=== PATIENT | female | born 1985 | race African-American/Black ===

== ENCOUNTER 2022-11-21 10:36 | Emergency (ER) | payer OTHER, SELFPAY ==
--- OUTSIDE RECORDS SUMMARY | 2022-11-21 10:38 | XMS REPORT | Continuity of Care Document ---
:1985 Author Organization [facility] t Address [address] [place] [address] [address] [place] [address] Care Team Providers Name Role Phone Anita Hoyos Primary Care Physician Daisy Pruitt CNM Attending Clinician DAISY PRUITT Attending Clinician Unavailable Doctor Unassigned, [place] Attending Clinician Unavailable Provider, Kalyn Temp Attending Clinician Unavailable ANITA HERRERA Attending Clinician Unavailable ANITA HERRERA Attending Clinician Unavailable REBEKA MIRANDA Attending Clinician Unavailable ALYSON DEMARCO Attending Clinician Unavailable Nilam Alyson OMTLEY Attending Clinician [phone] Rebeka Rivera Attending Clinician ABILIO Attending Clinician Unavailable ANITA GARCIA Attending Clinician Unavailable TRISH BUSH Attending Clinician Unavailable Lab, Adc Fam Pob I Attending Clinician Unavailable Trish Gonzalez Attending Clinician Bernardo Bernardo DO Attending Clinician Anita Hoyos Attending Clinician Visit, Kalyn Nurse Attending Clinician Unavailable ABILIO Admitting Clinician Unavailable Payers Payer Name Policy Type Policy Number Effective Date Expiration Date S deyvi Problems Condition Condition Condition Status Onset Resolution Last Treating Co mments Source Name Details Category Date Date Treatment Clinician Date Vaginal Vaginal Disease Active Univers irritation irritation 9-14 it y of 00:00: [place] 00 Medical Branch Yeast Yeast Disease Active Univers infection infection 9-14 ity of 00:00: Medical Branch ASCUS of ASCUS of Disease Active Overview: Un rosario cervix cervix - Formattin ity of with with 00:00: g of this [place] negative negative 00 note Medica l high risk high risk might be Br anch HPV HPV different from the original. ASCUS/HPV -, repeat pap smear in 3 years (2024) Presence Presence Disease Active 2020-03 Unive rs of of 2-21 [place] of [place] Medical contracept contracept Br anch luis device luis device Encounter Encounter Disease Active 2020-03 Uni vers for for 2-21 ity of surveillan surveillan [place] of ce of 00 Medical other other Branch contracept contracept luis luis Screening Screening Disease Active 2020-03 Uni vers examinatio examinatio 0-07 it y of n for STD n for STD [place] ([place]ually (sexually 00 Medi nisa transmitte transmitte Br anch d disease) d disease) Irregular Irregular Disease Active Uni vers menstrual menstrual 8-12 ity of cycle cycle 00:00: [place] [facility] Low HDL Low HDL Disease Active 2018-03 Univers (under 40) (under 40) 1-27 it y of 00:00: [facility] Pre-diabet Pre-diabet Disease Active 2018-03 U bello es es 1-27 ity of 00:00: [place] [facility] Screen for Screen for Disease Active 2016-03 U charbelers STD STD -27 ity of (sexually (sexually [place] transmitte transmitte 00 Me dical d disease) d disease) Br anch BMI BMI Disease Active Univers 39.0-39.9, 39.0-39.9, 7-13 it y of adult adult 00:00: [place] [facility] Encounter Encounter Disease Active Uni vers for for 7-13 ity of initial initial 00:00: [place] prescripti prescripti 00 Me dical on of on of [facility] vaginal vaginal ring ring hormonal hormonal contracept contracept luis luis Morbid Morbid Disease Active Univers obesity obesity -13 ity of 00:00: [place] 00 [facility] Contracept Contracept Disease Active U nivers luis luis 5-17 ity of management [place] [facility] Dysmenorrh Dysmenorrh Disease Active U nivers ea ea 517 ity of 00:00: [place] 00 [facility] Allergies, Adverse Reactions, Alerts Allergy Allergy Status Severity Reaction(s) Onset Inactive Treating Comm ents Source Name Type Date Date Clinician NO KNOWN Drug Active Univers ALLERGIE Class ity of S [facility] Social History Social Habit Start Date Stop Date Quantity Comments Source History of tobacco 2004-09-13 Cigarette Smoker University of use 00:00:00 [facility] History [facility] o f Alcohol Std Drinks [facility] History [facility] o f Alcohol Binge [facility] Alcohol intake 2022 2022 0 /d University of 00:00:00 00:00:00 [facility] Exposure to 2022-01-13 2022-01-23 Not sure University of SARS-CoV-2 (event) 00:00:00 14:08:00 [facility] Cigarettes smoked 2021-09-26 2021-09-26 Univers ity of current (pack per 00:00:00 00:00:00 [facility] [place] [facility] ) - Reported [facility] Cigarette 2021-09-26 2021-09-26 University of pack-years 00:00:00 00:00:00 [facility] Tobacco Comment 2021-09-26 2021-09-26 pack per day. Univer sity of 00:00:00 00:00:00 [facility] Tobacco use and 2021-09-26 2021-09-26 Smokeless Universit y of exposure 00:00:00 00:00:00 tobacco non-user [facility] dical Branch History SDOH 2019-01-27 2019-01-27 2 University o f Alcohol Frequency 00:00:00 00:00:00 [facility] Alcohol Comment 2016-09-13 2016-09-13 social Universit y of 00:00:00 00:00:00 [facility] Sex Assigned At [birth year] Universit y of 00:00:00 00:00:00 [facility] Smoking Status Start Date Stop Date Source Ex-smoker 2021-09-26 00:00:00 2021-09-26 00:00:00 Universi ty of [facility] Medications Ordered Filled Start Stop Current Ordering Indication Dosage Frequency Signature Comments Components Source Medication Medication Date Date Medication? Clinician (SIG) Name Name metroNIDAZO 2022- No [id number] 2000mg Take 4 Univers LE 500 mg 09-03 tablets by ity of tablet 00:00: 04:59 mouth [place] 00 :[place] now for 1 Medical dose. Branch metroNIDAZO 2022- Yes [id number] 2000mg Take 4 Univers LE 500 mg 09-01 tablets by ity of tablet 00:00: 04:59 mouth in [place] 00 :00 the Medical morning Branch and 4 tablets in the evening. Do all this for 7 days. metroNIDAZO 2022- No [id number] 2000mg Take 4 Univers LE 500 mg 09-01 tablets by ity of tablet 00:00: 00:00 mouth in [place] 00 :00 the Medical morning Branch and 4 tablets in the evening. Do all this for 7 days. fluconazole No [id number] 150mg Take 1 Univers (DIFLUCAN) 08-30 tablet by ity of 150 mg 00:00: 04:59 [place] tablet 00 :00 now for 1 Medical dose. Branch fluconazole 2022- No [id number] 150mg Take 1 Univers (DIFLUCAN) 08-30 tablet by ity of 150 mg 00:00: 04:59 mouth [place] tablet 00 :00 now for 1 Medical dose. Branch fluconazole 2022- No TAKE 1 Uni vers 150 mg 08-27 TABLET BY ity of tablet 00:00: 00:00 MOUTH 1 [place] 00 :00 TIME NOW Medical FOR 1 DOSE Branch fluconazole 2022- No TAKE 1 Uni vers 150 mg 08-27 TABLET BY ity of tablet 00:00: 00:00 MOUTH 1 [place] 00 :00 TIME NOW Medical FOR 1 DOSE Branch fluconazole 2021-03- No [id number] 150mg Take 1 Univers (DIFLUCAN) 03-25- tablet by ity of 150 mg 00:00: 05:59 mouth [place] tablet 00 :00 now for 1 Medical dose. Branch fluconazole 2021-03- No [id number] 150mg Take 1 Univers (DIFLUCAN) 03-25- tablet by ity of 150 mg 00:00: 05:59 mouth [place] tablet 00 :00 now for 1 Medical dose. Branch metroNIDAZO 2021-03- No [id number] 500mg Take 1 Univers LE 500 mg 0-04 10-12 tablet by ity of tablet 00:00: 04:59 mouth [place] 00 :00 every 12 Medical (twelve) Branch hours for 7 days. metroNIDAZO 2021-03- No [id number] 500mg Take 1 Univers LE 500 mg 0-04 10-12 tablet by ity of tablet 00:00: 04:59 mouth [place] 00 :00 every 12 Medical (twelve) Branch hours for 7 days. terconazole Yes [id number] 1{appli Insert 1 Univers 0.8 % 9-14 cator} Applicator ity of vaginal 00:00: into [place] cream 00 vagina at Medical bedtime. Branch fluconazole Yes [id number] 150mg Take 1 Univers (DIFLUCAN) 9-14 tablet by ity of 150 mg 00:00: mouth [place] tablet 00 weekly. Medical Branch terconazole Yes [id number] 1{appli Insert 1 Univers 0.8 % 9-14 cator} Applicator ity of vaginal 00:00: into [place] cream 00 vagina at Medical bedtime. Branch fluconazole Yes [id number] 150mg Take 1 Univers (DIFLUCAN) 9-14 tablet by ity of 150 mg 00:00: mouth [place] tablet 00 weekly. Medical Branch terconazole Yes [id number] 1{appli Insert 1 Univers 0.8 % 9-14 cator} Applicator ity of vaginal 00:00: into [place] cream 00 vagina at Medical bedtime. Branch fluconazole Yes [id number] 150mg Take 1 Univers (DIFLUCAN) 9-14 tablet by ity of 150 mg 00:00: mouth [place] tablet 00 weekly. Medical Branch terconazole 2021- No [id number] 1{appli Insert 1 Univers 0.8 % 11-15 cator} Applicator ity o f vaginal 00:00: 00:00 into [place] cream 00 :00 vagina at Medical bedtime. Branch fluconazole 2021- No [id number] 150mg Take 1 Univers (DIFLUCAN) 11-15 tablet by ity of 150 mg 00:00: 00:00 mouth [place] tablet 00 :00 weekly. Medical Branch terconazole 2021- No [id number] 1{appli Insert 1 Univers 0.8 % 11-15 cator} Applicator ity o f vaginal 00:00: 00:00 into [place] cream 00 :00 vagina at Medical bedtime. Branch fluconazole 2021- No [id number] 150mg Take 1 Univers (DIFLUCAN) 11-15 tablet by ity of 150 mg 00:00: 00:00 mouth [place] tablet 00 :00 weekly. Medical Branch fluconazole 2021- No [id number] 150mg Take 1 Univers (DIFLUCAN) 11-15 tablet by ity of 150 mg 00:00: 00:00 mouth once [place] tablet 00 :00 now for 1 Medical dose. Branch fluconazole 2021- No [id number] 150mg Take 1 Univers (DIFLUCAN) 11-15 tablet by ity of 150 mg 00:00: 00:00 mouth once [place] tablet 00 :00 now for 1 Medical dose. [facility] NUVARING 2019-03 Yes [id number] 1{each} Insert 1 Univers (NUVARING) 1-30 Each into ity of 0.12-0.015 00:00: vagina [place] mg/24 hr 00 once every Medic al vaginal month. Branch insert Insert vaginally and leave in place for 3 consecutiv e weeks, then remove for 1 week. NUVARING 2019-03 Yes [id number] 1{each} Insert 1 Univers (NUVARING) 1-30 Each into ity of 0.12-0.015 00:00: vagina [place] mg/24 hr 00 once every Medic al vaginal month. Branch insert Insert vaginally and leave in place for 3 consecutiv e weeks, then remove for 1 week. NUVARING 2019-03 Yes [id number] 1{each} Insert 1 Univers (NUVARING) 1-30 Each into ity of 0.12-0.015 00:00: vagina [place] mg/24 hr 00 once every Medic al vaginal month. Branch insert Insert vaginally and leave in place for 3 consecutiv e weeks, then remove for 1 week. NUVARING 2019-03- No [id number] 1{each} Insert 1 Univers (NUVARING) 1-30 10-04 Each into ity of 0.12-0.015 00:00: 00:00 vagina [place] mg/24 hr 00 :00 once every Medic al vaginal month. Branch insert Insert vaginally and leave in place for 3 consecutiv e weeks, then remove for 1 week. NUVARING 2019-03- No [id number] 1{each} Insert 1 Univers (NUVARING) 1 10-04 Each into ity of 0.12-0.015 00:00: 00:00 vagina [place] mg/24 hr 00 :00 once every Medic al vaginal month. Branch insert Insert vaginally and leave in place for 3 consecutiv e weeks, then remove for 1 week. Vital Signs Vital Name Observation Time Observation Value Comments Source Systolic blood 2022 14:43:00 120 mm[Hg] [facility] Diastolic blood 2022 14:43:00 69 [facility]Hg[facility] 14:43:00 74 /min [facility] acute hospital Body temperature 2022 14:43:00 36.56 [facility] Respiratory rate 2022 14:43:00 18 /min [facility] Body height 2022 14:43:00 162.6 cm [facility] acute hospital Body weight 2022 14:43:00 111.698 kg [facility] acute hospital BMI 2022 14:43:00 42.27 kg/m2 General acute hospital Systolic blood 2022-01-23 20:39:00 131 mm[Hg] Univer sity of pressure [place] [facility] Diastolic blood 2022-01-23 20:39:00 80 mm[Hg] Unive rsity of pressure [place] [facility] Heart rate 2022-01-23 20:39:00 86 /min Universi ty of [place] [facility] Body temperature 2022-01-23 20:39:00 36.78 [facility]i Univ ersity of [place] [facility] Respiratory rate 2022-01-23 20:39:00 19 /min Univ ersity of [place] [facility] Body height 2022-01-23 20:39:00 162.6 cm Universi ty of [place] [facility] Body weight 2022-01-23 20:39:00 105.597 kg Universi ty of [place] [facility] BMI 2022-01-23 20:39:00 39.96 kg/m2 Universi ty of [place] [facility] Systolic blood 2021-12-05 14:51:00 122 mm[Hg] Univer sity of pressure [place] [facility] Diastolic blood 2021-12-05 14:51:00 74 mm[Hg] Unive rsity of pressure [place] [facility] Heart rate 2021-12-05 14:51:00 69 /min Universi ty of [place] [facility] Body temperature 2021-12-05 14:51:00 36.56 [place] Univ ersity of [place] [facility] Respiratory rate 2021-12-05 14:51:00 18 /min Univ ersity of [place] [facility] Body weight 2021-12-05 14:51:00 104.01 kg Universi ty of [place] [facility] BMI 2021-12-05 14:51:00 38.16 kg/m2 Universi ty of [place] [facility] Systolic blood 2021-11-15 14:34:00 139 mm[Hg] Univer sity of pressure [place] [facility] Diastolic blood 2021-11-15 14:34:00 86 mm[Hg] Unive rsity of pressure [place] [facility] Heart rate 2021-11-15 14:34:00 93 /min Universi ty of [place] [facility] Body temperature 2021-11-15 14:34:00 36.5 [place]i Univ ersity of [place] [facility] Respiratory rate 2021-11-15 14:34:00 18 /min Univ ersity of [place] [facility] Body weight 2021-11-15 14:34:00 105.552 kg Universi ty of [place] [facility] BMI 2021-11-15 14:34:00 38.72 kg/m2 General acute hospital Procedures Procedure Date / Time Performed Performing Clinician [facility] CONSENT/REFUSAL FOR 2022 14:16:14 Doctor Unassigned, No Un [facility] DIAGNOSIS AND Name [facility] TREATMENT ASSIGNMENT OF BENEFITS 2022 14:15:56 Doctor Unassigned, No [facility] Encounters Start End Encounter Admission Attending Care Care Encounter Source Date/Time Date/Time Type Type Clinicians Facility Department ID 2022-09-02 2022-09-02 [facility]phone [facility] [id number] Univers 00:00:00 00:00:00 Daisy A [employer] [id number] i ty of [id number] Tam as MATERNAL [id number] [facility] CHILD [address] [place] [address] 2022-09-01 2022-09-01 [facility] [id number] Univers 00:00:00 00:00:00 Management Daisy A [employer] [id number] ity of [place] [id number] Tam as MATERNAL [id number] [facility] [address] [place] [address] 2022 2022 [facility] [id number] Univers 09:30:00 10:35:54 DAISY ity of [facility] 2022 2022 Office [facility] [id number] Univers 09:30:00 10:35:54 Visit Daisy A [employer] [id number] i ty of [place] [id number] Tam as MATERNAL [id number] [facility] [address] [place] [address] 2022 2022 Orders Doctor ABDI [id number] Univers 00:00:00 00:00:00 Only Unassigned, SIMON [id number] ity of [place]2.7.2.686 Tam as [id number] [address] 2022-01-23 2022-01-23 Outpatient R SONAL [facility] [id number] Univers 14:30:00 15:08:13 DAISY [facility] 2022-01-23 2022-01-23 Office Provider, [facility] 1 .2.840.114 [id number] Univers 14:30:00 15:08:13 Visit Daisy Pruitt [employer] [id number] 0 ity [facility] [id number] Tam as MATERNAL [id number] Med ical & CHILD [address] [place] [address] 2021-12-12 2021-12-12 Outpatient ANITA PACHECO [facility] [id number] Univers 00:00:00 00:00:00 ANITA HERRERA [facility] 2021-12-11 2021-12-11 Outpatient R RUBEN [facility] [id number] Univers 13:15:00 13:15:00 REBEKA salazar [facility] 2021-12-05 2021-12-05 [facility] [id number] Univers 09:45:00 10:43:22 ALYSON salazar [facility] 2021-12-05 2021-12-05 Office Provider, [facility] 1 .2.840.114 [id number] Univers 09:45:00 10:43:22 Visit Alyson Demarco [employer] 350.1.13. 10 ity [facility] [id number] Tam as MATERNAL [id number] Med ical & CHILD [address] [place] [address] 2021-12-05 2021-12-05 Devyn Herrera [facility] 1.2.840.114 [id number] Univers 00:00:00 00:00:00 (Out) Anita Steele [employer] [id number] i ty [facility] [id number] Tam as MATERNAL [id number] Med ical & CHILD [address] [place] [address] 2021-11-15 2021-11-15 Outpatient Idris MIRANDA [facility] [id number] Univers 09:45:00 09:53:20 EDUARDONDA ity o [place] [facility] 2021-11-15 2021-11-15 Office [facility] 1.2.840.114 [id number] Univers 09:45:00 09:53:20 Visit Jerela R [employer] [id number] ity of REGIONAL [id number] Tam as MATERNAL [id number] Med ical & CHILD [address] [place] [address] 2021-09-29 2021-09-29 Outpatient ENEDELIA MAIN [address] 00:00:00 00:00:00 HN 0729 da [facility] 2021-09-26 2021-09-26 Office [facility] 1.2.840.114 [id number] Univers 15:45:00 16:07:59 Visit Rebeka R [employer] [id number] ity of REGIONAL [id number] Tam as MATERNAL [id number] Med ical & CHILD [address] [place] [address] 2021-09-26 2021-09-26 Outpatient Id[facility] [id number] Univers 15:45:00 16:07:59 EDUARDONDA ity o [place] [facility] 2021-09-26 2021-09-26 Outpatient Idris MIRANDA [facility] [id number] Univers 15:45:00 15:45:00 ROSCHINANDA ity o [place] [facility] 2021-06-30 2021-06-30 [facility] [id number] Univers 00:00:00 00:00:00 Roschinanda R [employer] [id number] ity of [facility] [id number] Tam as MATERNAL [id number] Med ical & CHILD [address] [place] [address] 2021-06-27 2021-06-27 [facility] 1.2.840.114 [id number] Univers 12:45:00 13:20:57 Visit Eduardocorrina Steinberg [employer] [id number] ity of [facility] [id number] Tam as MATERNAL [id number] [facility] & [address] 2021-06-27 2021-06-27 Out[facility] [id number] Univers 12:45:00 13:20:57 REBEKA king o [facility] 2021-06-27 2021-06-27 Outpatient [facility] [id number] Univers 12:45:00 12:45:00 EDUARDOBAMAmanda king o [facility] 2021-05-22 2021-05-22 Office [facility] [id number] Univers 14:15:00 14:50:46 Visit Alyson Carter [employer] [id number] ity of [facility] [id number] Tam as MATERNAL [id number] [address] 2021-05-22 2021-05-22 Outpatient R NILAM, [facility] [id number] Univers 14:15:00 14:50:46 ALYSONVALORIE salazar [facility] 2021-05-22 2021-05-22 [facility] [id number] Univers 14:15:00 14:15:00 ALYSONVALORIE king o [facility] 2021-03-10 2021-03-10 Telephone [facility] [id number] Univers 00:00:00 00:00:00 Eduardocorrina R [employer] [id number] ity of [facility] [id number] Tam as MATERNAL [id number] [address] 2021-02-21 2021-02-21 Outpatient [facility] [id number] Univers 15:00:00 15:36:35 EDUARDOBAMAmanda king o [place] [facility] 2021-02-21 2021-02-21 Office [facility] 1.2.840.114 [id number] Univers 15:00:00 15:36:35 Visit Rebeka Idris [employer] [id number] ity of [facility] [id number] Tam as MATERNAL [id number] [facility] [address] [place] [address] 2021-02-21 2021-02-21 Outpatient [facility] [id number] Univers 15:00:00 15:36:35 REBEKA carlosy o [place] [facility] 2021-02-21 2021-02-21 Outpatient [facility] [id number] Univers 15:00:00 15:36:35 REBEKA carlosy o [place] [facility] 2021-02-21 2021-02-21 Orders Doctor TRINIDAD 1.2.840.114 [id number] Univers 00:00:00 00:00:00 Only Unassigned, SIMON 350.1.13.10 ity of [place] [facility] 4.2.7.2.686 Tam as [id number] [address] 2021-01-19 2021-01-19 Outpatient [facility] [id number] Univers 14:30:00 14:30:00 ANITA king [facility] 2021-01-13 2021-01-13 Outpatient Idris [facility] [id number] Univers 09:45:00 09:45:00 ANITA king [facility] 2020-12-08 2020-12-08 Office [facility] [id number] Univers 14:22:47 15:24:04 Visit Alyson Carter [employer] [id number] ity of [facility] [id number] Tam as MATERNAL [id number] [facility] & CHILD [address] [place] [address] 2020-12-08 2020-12-08 Out[facility] [id number] Univers 14:30:00 14:30:00 ALYSON king o [facility] 2020-12-08 2020-12-08 Orders Doctor ABDI 1.2.840.114 [id number] Univers 00:00:00 00:00:00 Only Unassigned, SIMON 350.1.13.10 ity of [place] [facility] [id number] Tam as [id number] [address] 2020-12-07 2020-12-07 Telephone [facility] 1.2.840.114 [id number] Univers 00:00:00 00:00:00 Alyson C [employer] [id number] ity of [facility] [id number] Tam as MATERNAL [id number] [facility] [address] [place] [address] 2020-12-06 2020-12-06 Office [facility] [id number] Univers 14:48:32 15:30:07 Visit Alyson C [employer] [id number] ity of [place] [id number] Tam as MATERNAL [id number] [address] 2020-12-06 2020-12-06 Outpatient R NILAM [facility] [id number] Univers 15:00:00 15:00:00 ALYSON king o [facility] 2020-12-06 2020-12-06 [facility] [id number] Univers 15:00:00 15:00:00 ALYSON king o [facility] 2020-06-30 2020-06-30 Office [facility] [id number] Univers 14:05:27 15:12:13 Visit Alyson Carter [employer] [id number] ity of [id number] Tam as MATERNAL [id number] [address] 2020-06-30 2020-06-30 Outpatient R NILAM [facility] [id number] Univers 14:15:00 14:15:00 ALYSON ity o [facility] 2020-05-24 2020-05-24 Outpatient R IFRAH [facility] [id number] Univers 11:40:00 11:40:00 TRISH king [facility] 2020-05-24 2020-05-24 Laboratory Lab, Adc Fam Pob I [facility] 1.2. [id number] Univers 11:19:39 11:39:39 Only Trish uBsh 350.1.13.10 ity of [place] [id number] Tam as Professio [id number] Vt dical nal [address] 2020-05-24 2020-05-24 Patient Az [facility] 1.2.840.114 [id number] Univers 00:00:00 00:00:00 Outreach Bernardo PRIMARY [id number] i ty of [facility] 4.2.7.2.686 [place] DANNIEL[place] [id number] Vt dicak [address] 2020-02-02 2020-02-02 [id number] Univers 00:00:00 00:00:00 Anita No [employer] [id number] it y of [facility] [id number] Tam as MATERNAL [id number] Med ical & CHILD [address] [place] [address] 2020-02-01 2020-02-01 Office Jose [facility] [id number] Univers 08:47:23 09:37:30 Visit Anita No [employer] [id number] it y of [facility] [id number] Tam as MATERNAL [id number] [facility] ical & CHILD [address] [place] [address] 2020-02-01 2020-02-01 Outpatient R JOSE [facility] [id number] Univers 08:45:00 08:45:00 ANITA king of [facility] 2020-02-01 2020-02-01 Orders Doctor ABDI [id number] Univers 00:00:00 00:00:00 Only Unassigned, SIMON [id number] ity of [facility] [id number] Tam as [id number] [address] 2019-10-14 2019-10-14 Office Nilam [facility] [id number] Univers 13:27:42 14:28:00 Visit Alyson Carter [employer] [id number] ity of REGIONAL [id number] Tam as MATERNAL [id number] [facility] & [address] 2019-10-14 2019-10-14 Outpatient R NILAM [facility] [id number] Univers 13:30:00 13:30:00 ALYSON king o f [facility] 2019-10-08 2019-10-08 [facility] [id number] Univers 00:00:00 00:00:00 Anita No [employer] [id number] it y of REGIONAL [id number] Tam as MATERNAL [id number] [address] 2019-05-11 2019-05-11 Nurse Visit, [facility] Nurse [facility] [id number] Univers 10:09:08 10:56:40 Visit Anita Garcia [employer] [id number] ity of [facility] [id number] Tam as MATERNAL [phone] [facility] [address] [place] [address] 2019-05-11 2019-05-11 Outpatient R JOSE [facility] [id number] Univers 10:00:00 10:00:00 ANITA king [facility] Results This patient has no known results.
[2022-11-21] MEDS ORDERED: NA CHLORIDE 0.9% 1,000 ML ONE (11:33)
[2022-11-21] MEDS ORDERED: MORPHINE 2 MG/ML SYR ONE (11:33)
[2022-11-21] MEDS ORDERED: FAMOTIDINE 20 MG/2 ML VIAL IV ONE (11:33)
[2022-11-21] MEDS ORDERED: ONDANSETRON 4 MG/2 ML VIAL ONE (11:33)
[2022-11-21 11:39] LABS: Absolute Lymphocytes (CBC) 2.5 K/uL (0.7-4.9); Hematocrit 36.5 % (36.0-45.0); Lymphocytes % 29.2 % (15.3-44.8); MCV 90.2 fL (80-100); MPV 8.1 fL (7.6-11.3); Platelets 221 thou/uL (152-406); RBC Red Blood Cell Count 4.04 M/uL (3.86-4.86)
[2022-11-21 11:55] LABS: Albumin 3.6 g/dL (3.4-5.0); Bilirubin Total 0.3 mg/dL (0.2-1.0); Potassium 3.9 mEq/L (3.5-5.1); Protein, Total 8.2 g/dL (6.4-8.2)
[2022-11-21 12:14] LABS: Specific Gravity 1.024 (1.005-1.030)
[2022-11-21 12:15] LABS: Specific Gravity 1.025 (1.005-1.030); Urine Bacteria <20 /HPF (<20); Urine Bilirubin NEGATIVE (Negative); Urine Blood Negative (Negative); Urine Clarity Turbid (Clear); Urine Color Light-Yellow (Yellow); Urine Glucose NEGATIVE (Negative); Urine Mucus Slight /HPF (None Seen); Urine Protein NEGATIVE (Negative); Urine RBC <5 /HPF (None Seen); Urine Urobilinogen Normal (Normal)
--- NOTE | 2022-11-21 13:01 | RAD REPORT ---
EXAM DESCRIPTION: CT - Abdomen Pelvis W Contrast - 11/21/2022 12:25 pm CLINICAL HISTORY: ABD PAIN COMPARISON: No comparisons TECHNIQUE: Thin cut axial CT imaging of the abdomen and pelvis was performed following intravenous a dministration of 100 mL Isovue 300. Multiplanar reformats were generated and reviewed. All CT scans are performed using dose optimization technique as appropriate and may include automated exposure control or mA/KV adjustment according to patient size. FINDINGS: No suspicious findings in the lung bases. The liver, spleen, and pancreas show no suspicious findings. Gallbladder shows numerous small layerin g stones. Symmetric renal function is seen with no hydronephrosis or suspicious renal mass. No dilated bowel loops or bowel wall thickening. No free air, free fluid or inflammatory stranding. N o hernia, mass or bulky lymphadenopathy. The urinary bladder is without significant finding. IUD in place. Subchondral sclerotic changes along the right more than left sacroiliac joints. No other suspicious b juanita findings. IMPRESSION: No acute intra-abdominal process. Cholelithiasis. Subchondral sclerotic changes along the right more than left sacroiliac joints. Findings are nonspeci fic, and could relate to inflammatory arthritis. No erosions. Please correlate clinically.
--- NOTE | 2022-11-21 13:23 | ER ---
Nurse's Notes [facility] Name: Alicia Osborne Age: 37 yrs Sex: Female : 1985 Arrival Date: 11/21/2022 Time: 10:36 Bed 14 Private MD: Diagnosis: Alcohol induced acute pancreatitis without necrosis or infection Presentation: 11/21 11:02 Chief complaint: Patient states: Upper abdominal pain, sweaty, N/V onset 2 hours [employer]. ll1 Had to leave work. Coronavirus screen: Vaccine status: Patient reports receiving the 2nd dose of the covid vaccine. Client denies travel out of the [place] in the last 14 days. fatigue, nausea, vomiting. Client presents with at least one sign or symptom that may indicate coronavirus-19. Standard/surgical mask placed on the client. Ebola Screen: Patient denies travel to an Ebola-affected area in the 21 days before illness onset. Initial Sepsis Screen: Does the patient meet any 2 criteria? No. Patient's initial sepsis screen is negative. Does the patient have a suspected source of infection? Yes: Acute abdominal pain. Risk Assessment: Do you want to hurt yourself or someone else? Patient reports no desire to harm self or others. Onset of symptoms was November 21, 2022. 11:02 Method Of Arrival: Ambulatory 1 11:02 Acuity: PORTIA 3 ll1 Triage Assessment: 11:04 General: Appears uncomfortable, Behavior is calm, cooperative, appropriate for age. ll1 Pain: Complains of pain in abdomen Quality of pain is described as aching. GI: Reports upper abdominal pain, cramping, nausea, vomiting. Historical: - Allergies: 10:56 No Known Drug Allergies; ll1 - PMHx: 11:02 None; ll1 - PSHx: 11:02 None; ll1 - Immunization history:: Adult Immunizations up to date, Client reports receiving the 2nd dose of the Covid vaccine. - Social history:: Smoking status: Reported history of juuling and/or vaping. Patient denies any tobacco usage or history of. Screenin:10 [facility] ED Fall Risk Assessment (Adult) History of falling in the last 3 months, kc6 including since admission No falls in past 3 months (0 pts) Confusion or Disorientation No (0 pts) Intoxicated or Sedated No (0 pts) Impaired Gait No (0 pts) Mobility Assist Device Used No (0 pt) Altered Elimination No (0 pt) Score/Fall Risk Level 0 - 2 = Low Risk. Abuse screen: Denies threats or abuse. Denies injuries from another. Nutritional screening: No deficits noted. Tuberculosis screening: No symptoms or risk factors identified. Assessment: 11:30 General: Appears in no apparent distress. uncomfortable, Behavior is calm, cooperative, kc6 appropriate for age. Pain: Complains of pain in abdomen. Neuro: Level of Consciousness is awake, alert, obeys commands, Oriented to person, place, time, situation, Appropriate for age. Cardiovascular: Capillary refill < 3 seconds. Respiratory: Airway is patent Trachea midline Respiratory effort is even, unlabored, Respiratory pattern is regular, symmetrical. GI: Abdomen is round non-distended, Bowel sounds present X 4 quads. Reports nausea, vomiting, Patient currently denies diarrhea. : Urine is clear. EENT: No signs and/or symptoms were reported regarding the EENT system. Derm: No signs and/or symptoms reported regarding the dermatologic system. Skin is intact, is healthy with good turgor, Skin is clammy, Skin is normal, Skin temperature is warm. Musculoskeletal: No signs and/or symptoms reported regarding the musculoskeletal system. Circulation, motion, and sensation intact. Capillary refill < 3 seconds, Range of motion: intact in all extremities. 12:30 Reassessment: Patient appears in no apparent distress at this time. No changes from kc6 previously documented assessment. Patient and/or family updated on plan of care and expected duration. Pain level reassessed. Patient is alert, oriented x 3, equal unlabored respirations, skin warm/dry/pink. 13:30 Reassessment: Patient appears in no apparent distress at this time. No changes from kc6 previously documented assessment. Patient and/or family updated on plan of care and expected duration. Pain level reassessed. Patient is alert, oriented x 3, equal unlabored respirations, skin warm/dry/pink. Vital Signs: 11:02 BP 123 / 84; Pulse 77; Resp 18; Temp 98.6; Pulse Ox 100% on R/A; Weight 106.59 kg; ll1 Height 5 ft. 4 in. ; Pain 7/10; 12:44 BP 135 / 90; Pulse 84; Resp 16 S; Pulse Ox 100% on R/A; kc6 11:02 Body Mass Index 40.34 (106.59 kg, 162.56 cm) ll1 11:02 Pain Scale: Adult ll1 ED Course: 10:39 Patient arrived in ED. mg5 10:40 Cynthia Ware PA-C is PHCP. sb4 10:40 Trevin Hobson MD is Attending Physician. sb4 10:56 Silvia Vazquez RN is Primary Nurse. kc6 10:56 Arm band placed on Patient placed in an exam room, on a stretcher. ll1 11:04 Triage completed. ll1 11:10 Patient has correct armband on for positive identification. Bed in low position. Call kc6 light in reach. Side rails up X 1. Adult w/ patient. Client placed on continuous cardiac and pulse oximetry monitoring. NIBP monitoring applied. 11:10 Inserted saline lock: 20 gauge in left antecubital area, using aseptic technique. Blood kc6 collected. 12:27 CT Abd/Pelvis - IV Contrast Only In Process Unspecified. EDMS 13:59 No provider procedures requiring assistance completed. IV discontinued, intact, kc6 bleeding controlled, No redness/swelling at site. Pressure dressing applied. Administered Medications: 11:30 Drug: NS 0.9% IV 1000 ml IV at 1 bolus Per protocol; 1000 mL bolus Route: IV; Rate: 1 kc6 bolus; Site: left antecubital; 13:59 Follow up: Response: No adverse reaction; IV Status: Completed infusion; IV Intake: kc6 1000ml 11:30 Drug: Famotidine IVP 20 mg IVP once; dilute with 10 mL 0.9% NaCl; give over 2 minutes kc6 Route: IVP; Site: left antecubital; 12:32 Follow up: Response: No adverse reaction kc6 11:30 Drug: morphine IVP or IV 2 mg IVP once over 4 mins Route: IVP; Infused Over: 4 mins; kc6 Site: left antecubital; 12:32 Follow up: Response: No adverse reaction kc6 11:31 Drug: Ondansetron IVP 4 mg IVP once; over 2 minutes Route: IVP; Site: left antecubital; kc6 12:32 Follow up: Response: No adverse reaction kc6 Medication: 13:59 VIS not applicable for this client. kc6 Intake: 13:59 IV: 1000ml; Total: 1000ml. kc6 Outcome: 13:22 Discharge ordered by . kortney 13:59 Discharged to home ambulatory, with family, kc6 13:59 Condition: improved 13:59 Discharge instructions given to patient, Instructed on discharge instructions, follow up and referral plans. medication usage, Demonstrated understanding of instructions, follow-up care, medications, Prescriptions given X 2, 13:59 Patient left the ED. kc6 Signatures: Dispatcher [employer] EDErika Birch RN RN ll1 Silvia Vazquez RN RN kc6 Cynthia Ware, PA-C PA-C sb4 Therese Richardson 5
--- NOTE | 2022-11-21 13:23 | EDPHYS ---
Physician Documentation [facility] Name: Alicia Osborne Age: 37 yrs Sex: Female : 1985 Arrival Date: 11/21/2022 Time: 10:36 Bed 14 Private MD: ED Physician Trevin Hobson HPI: 11/21 11:15 This 37 yrs old Black Female presents to ER via Ambulatory with complaints of Abdominal sb4 Pain. 11:15 The patient presents with abdominal pain in the epigastric area. Onset: The sb4 symptoms/episode began/occurred this morning. The symptoms do not radiate. Associated signs and symptoms: Pertinent positives: nausea and vomiting, Pertinent negatives: diarrhea, fever. The symptoms are described as squeezing. Modifying factors: The symptoms are alleviated by nothing, the symptoms are aggravated by nothing. The patient has not experienced similar symptoms in the past. The patient has not recently seen a physician. Historical: - Allergies: 10:56 No Known Drug Allergies; ll1 - PMHx: 11:02 None; ll1 - PSHx: 11:02 None; ll1 - Immunization history:: Adult Immunizations up to date, Client reports receiving the 2nd dose of the Covid vaccine. - Social history:: Smoking status: Reported history of juuling and/or vaping. Patient denies any tobacco usage or history of. ROS: 11:15 Constitutional: Negative for fever, chills, and weight loss, sb4 11:15 Abdomen/GI: Positive for abdominal pain, nausea and vomiting, 11:15 All other systems are negative, Exam: 11:15 Constitutional: This is a well developed, well nourished patient who is awake, alert, sb4 and in no acute distress. Head/Face: Normocephalic, atraumatic. Eyes: Extra-ocular motions intact. Periorbital areas with no swelling, redness, or edema. ENT: Mucous membranes moist. Cardiovascular: Regular rate and rhythm with a normal S1 and S2. Respiratory: Lungs have equal breath sounds bilaterally, clear to auscultation and percussion. No rales, rhonchi or wheezes noted. No increased work of breathing, no retractions or nasal flaring. Abdomen/GI: Soft, non-tender, no distension. Skin: Warm, dry with normal turgor. Normal color with no rashes, no lesions, and no evidence of cellulitis. MS/ Extremity: Pulses equal, no cyanosis. Neurovascular intact. Full, normal range of motion. Vital Signs: 11:02 BP 123 / 84; Pulse 77; Resp 18; Temp 98.6; Pulse Ox 100% on R/A; Weight 106.59 kg; ll1 Height 5 ft. 4 in. ; Pain 7/10; 12:44 BP 135 / 90; Pulse 84; Resp 16 S; Pulse Ox 100% on R/A; kc6 11:02 Body Mass Index 40.34 (106.59 kg, 162.56 cm) ll1 11:02 Pain Scale: Adult ll1 MDM: 10:40 Patient medically screened. sb4 11:15 Differential diagnosis: cholecystitis, Cholelithiasis, gastritis, gastroesophageal sb4 reflux disease, non-specific abd pain, pancreatitis, Peptic Ulcer Disease. 13:22 Data reviewed: vital signs, nurses notes, lab test result(s), radiologic studies, and sb4 as a result, I will discharge patient. Consideration of Admission/Observation Escalation of care including admission/observation considered. Counseling: I had a detailed discussion with the patient and/or guardian regarding the historical points, exam findings, and any diagnostic results supporting the discharge/admit diagnosis, lab results, radiology results, to return to the emergency department if symptoms worsen or persist or if there are any questions or concerns that arise at home. Special discussion: Based on the patient's Hx, exam, and Dx evaluation, there is no indication for emergent surgery or inpatient Tx. It is understood by the patient/guardian that if the Sx's persist or worsen they need to return immediately for re-evaluation. 11/21 11:15 Order name: CBC with Diff; Complete Time: 11:49 sb4 11/21 11:15 Order name: CMP; Complete Time: 11:55 sb4 11/21 11:15 Order name: Lipase; Complete Time: 11:55 sb4 11/21 11:15 Order name: Test, Urine; Complete Time: 12:32 sb4 11/21 11:15 Order name: UAM; Complete Time: 12:32 sb4 11/21 11:15 Order name: CT Abd/Pelvis - IV Contrast Only; Complete Time: 13:02 sb4 11/21 11:15 Order name: IV Saline Lock; Complete Time: 11:16 sb4 11/21 11:15 Order name: Labs collected and sent; Complete Time: 11:30 sb4 Administered Medications: 11:30 Drug: NS 0.9% IV 1000 ml IV at 1 bolus Per protocol; 1000 mL bolus Route: IV; Rate: 1 kc6 bolus; Site: left antecubital; 13:59 Follow up: Response: No adverse reaction; IV Status: Completed infusion; IV Intake: kc6 1000ml 11:30 Drug: Famotidine IVP 20 mg IVP once; dilute with 10 mL 0.9% NaCl; give over 2 minutes kc6 Route: IVP; Site: left antecubital; 12:32 Follow up: Response: No adverse reaction kc6 11:30 Drug: morphine IVP or IV 2 mg IVP once over 4 mins Route: IVP; Infused Over: 4 mins; kc6 Site: left antecubital; 12:32 Follow up: Response: No adverse reaction kc6 11:31 Drug: Ondansetron IVP 4 mg IVP once; over 2 minutes Route: IVP; Site: left antecubital; kc6 12:32 Follow up: Response: No adverse reaction kc6 Disposition: 14:14 Co-signature as Attending Physician, Trevin Hobson MD I reviewed the patient's care rt provided by the Advanced Practice Provider and agree with the diagnosis and treatment plan. Disposition Summary: 11/21/22 13:22 Discharge Ordered Notes: Location: Home sb4 Problem: new sb4 Symptoms: have improved sb4 Condition: Stable sb4 Diagnosis - Alcohol induced acute pancreatitis without necrosis or infection sb4 Followup: sb4 - With: Private Physician - When: As needed - Reason: Recheck today's complaints, Re-evaluation by your physician Discharge Instructions: - Discharge Summary Sheet sb4 - Acute Pancreatitis, [id number] sb4 - Pancreatitis Eating Plan sb4 Forms: - Work release form sb4 - Medication Reconciliation Form sb4 - Thank You Letter sb4 - Antibiotic Education sb4 - Prescription Opioid Use sb4 - Patient Portal Instructions sb4 - Leadership Thank You Letter sb4 Prescriptions: - Zofran 4 mg Oral Tablet - take 1 tablet ORAL route every 12 hours As needed; 20 tablet; Refills: 0, sb4 Product Selection Permitted - Tramadol 50 mg Oral Tablet - take 1 tablet ORAL route every 8 hours as needed; 12 tablet; Refills: 0, sb4 Product Selection Permitted Signatures: Dispatcher [employer] Erika Townsend RN RN ll1 Silvia Vazquez RN RN kc6 Cynthia Ware, SYD PAAnnelise sb4 Trevin Hobson MD MD rt
[2022-11-21 14:21] VITALS: TEMP 98.6; O2SAT 100
[2022-11-21 14:23] VITALS: BP 135/90
== END 2022-11-21 13:59 | disposition home or self-care (01) ==
LOC: ER 10:36
DX: K85.20 Alcohol induced acute pancreatitis without necrosis or infection (principal)
CPT/HCPCS: 85025; 81001; 36415; 81025; 83690; 80053; 74177; Q9967; J2270; J2405; J7030

== ENCOUNTER 2023-01-18 04:50 | Emergency (ER) | payer OTHER ==
--- OUTSIDE RECORDS SUMMARY | 2023-01-18 04:54 | XMS REPORT | Continuity of Care Document ---
:1985 Author Organization [facility] t Address [address] [place] [address] [place] [id number] Care Team Providers Name Role Phone Anita Hoyos Primary Care Physician Daisy Pruitt CNM Attending Clinician DAISY PRUITT Attending Clinician Unavailable Doctor Unassigned, [place] Attending Clinician Unavailable Provider, Kalyn Temp Attending Clinician Unavailable Rebeka Rivera Attending Clinician Unavailable ANITA HERRERA Attending Clinician Unavailable ANITA HERRERA Attending Clinician Unavailable REBEKA MIRANDA Attending Clinician Unavailable ALYSON DEMARCO Attending Clinician Unavailable Alyson Allen Attending Clinician [phone] ABILIO Attending Clinician Unavailable ANITA GARCIA Attending Clinician Unavailable TRISH RG Attending Clinician Unavailable Lab, Adc Fam Pob I Attending Clinician Unavailable Tirsh Gonzalez Attending Clinician Bernardo Bernardo DO Attending Clinician Anita Hoyos Attending Clinician Visit, Kalyn Nurse Attending Clinician Unavailable ABILIO Admitting Clinician Unavailable Payers Payer Name Policy Type Policy Number Effective Date Expiration Date S ource Problems Condition Condition Condition Status Onset Resolution Last Treating Co mments Source Name Details Category Date Date Treatment Clinician Date Vaginal Vaginal Disease Active Univers irritation irritation 9-14 it y of 00:00: [place] 00 [facility] Yeast Yeast Disease Active Univers infection infection 9-14 ity of 00:00: [address] ASCUS of ASCUS of Disease Active Overview: Un rosario cervix cervix -07 Formattin ity of with with 00:00: g of this [place] negative negative 00 note Medica l high risk high risk might be Br anch HPV HPV different from the original. ASCUS/HPV -, repeat pap smear in 3 years (2024) Presence Presence Disease Active 2020-03 Unive rs of of 2- [place] of [place] Medical contracept contracept Br anch luis device luis device Encounter Encounter Disease Active 2020-03 Uni vers for for - [place]y of surveillan [place] menstrual 8-12 ity of cycle cycle 00:00: [place] [facility] Low HDL Low HDL Disease Active 2018-03 Univers (under 40) (under 40) 1-27 it y of 00:00: [place] 00 [facility] Pre-diabet Pre-diabet Disease Active 2018-03 U nivers es es 1-27 ity of 00:00: [place] [facility] Branch Screen for Screen for Disease Active 2016-03 U nivers STD STD 1-27 ity of (sexually ([place] transmit[place] transmitte 00 Me dical d disease) d disease) Br anch BMI BMI Disease Active Univers 39.0-39.9, 39.0-39.9, 7-13 it y of adult adult 00:00: [place] 00 Medical Branch Encounter Encounter Disease Active Uni vers for for 7-13 ity of initial initial 00:00: [place] prescripti prescripti 00 Me dical on of on of Branch vaginal vaginal ring ring hormonal hormonal contracept contracept luis luis Morbid Morbid Disease Active Univers obesity obesity 7-13 ity of 00:00: [place] 00 [facility] Contracept Contracept Disease Active U nivers luis luis 5-17 [place]y of management [place] [facility] Dysmenorrh Dysmenorrh Disease Active U nivers ea ea 5-17 ity of 00:00: [place] 00 [facility] Allergies, Adverse Reactions, Alerts Allergy Allergy Status Severity Reaction(s) Onset Inactive Treating Comm ents Source Name Type Date Date Clinician NO KNOWN Drug Active Univers ALLERGIE Class ity of S [facility] Social History Social Habit Start Date Stop Date Quantity Comments Source History of tobacco 2004-09-13 Cigarette Smoker University of use 00:00:00 [facility] History SDOR University o f Alcohol Std Drinks [facility] History [facility] o f Alcohol Binge [facility] Sexual orientation Univer sity of [facility] Exposure to 2022-01-13 2022-01-23 Not sure University of SARS-CoV-2 (event) 00:00:00 14:08:00 [facility] History of Social 2021-12-05 2021-12-05 Univers ity of function 00:00:00 00:00:00 [facility] Alcohol intake 2019-05-11 2019-05-11 0 /d University of 00:00:00 00:00:00 [facility] History SDOH 2019-01-27 2019-01-27 2 University o f Alcohol Frequency 00:00:00 00:00:00 [facility] Branch Cigarettes smoked 2016-09-13 2016-09-13 Univers ity of current (pack per 00:00:00 00:00:00 [facility] ) - Reported Branch Cigarette 2016-09-13 2016-09-13 University of pack-years 00:00:00 00:00:00 [facility] Tobacco Comment 2016-09-13 2016-09-13 pack per day. Univer sity of 00:00:00 00:00:00 [facility] Alcohol Comment 2016-09-13 2016-09-13 social Universit y of 00:00:00 00:00:00 [facility] Tobacco use and 2016-09-13 2016-09-13 Smokeless Universit y of exposure 00:00:00 00:00:00 tobacco non-user [facility] Sex Assigned At [birth year] Universit y of 00:00:00 00:00:00 [facility] Smoking Status Start Date Stop Date Source Ex-smoker 2020-02-01 00:00:00 2020-02-01 00:00:00 Universi ty [facility] Smokes tobacco daily 2016-09-13 00:00:00 [facility] ity [facility] Medications Ordered Filled Start Stop Current Ordering Indication Dosage Frequency Signature Comments Components Source Medication Medication Date Date Medication? Clinician (SIG) Name Name metroNIDAZO 2022- No [id number] 2000mg Take 4 Univers LE 500 mg 09-03 tablets by ity of tablet 00:00: 04:59 [place] now for 1 Medical dose. Branch metroNIDAZO 2022- No [id number] 2000mg Take 4 Univers LE 500 mg 09-01 tablets by ity of tablet 00:00: 04:59 mouth in [place] 00 :00 the Medical morning Branch and 4 tablets in the evening. Do all this for 7 days. metroNIDAZO 2022- No [id number] 2000mg Take 4 Univers LE 500 mg 09-01 tablets by ity of tablet 00:00: 00:00 mouth in [place] 00 :00 the Medical morning Branch and 4 tablets in the evening. Do all this for 7 days. fluconazole 2022- No [id number] 150mg Take 1 Univers (DIFLUCAN) 08-30- tablet by ity of 150 mg 00:00: 04:59 [place] tablet 00 :00 now for 1 Medical dose. Branch fluconazole 2022- No [id number] 150mg Take 1 Univers (DIFLUCAN) 08-30- tablet by ity of 150 mg 00:00: [...] FOR 1 DOSE Branch fluconazole 2021-03- No [id number] 150mg Take 1 Univers (DIFLUCAN) 03-25 11-23 tablet by ity of 150 mg 00:00: 05:59 [place] tablet 00 :00 now for 1 Medical dose. Branch fluconazole 2021-03- No [id number] 150mg Take 1 Univers (DIFLUCAN) 03-25-23 tablet by ity of 150 mg 00:00: 05:59 [place] tablet 00 :00 now for 1 Medical dose. Branch metroNIDAZO 2021-03- No [id number] 500mg Take 1 Univers LE 500 mg 0-04 10-12 tablet by ity of tablet 00:00: 04:59 mouth [place] 00 :00 every 12 Medical (twelve) Branch hours for 7 days. metroNIDAZO 2021-03- No [id number] 500mg Take 1 Univers LE 500 mg 0-04 10-12 tablet by ity of tablet 00:00: 04:59 mouth [place] 00 :00 every 12 Medical (twelve) Branch hours for 7 days. terconazole Yes [id number] 1{appli Insert 1 Univers 0.8 % 9-14 cator} Applicator ity of vaginal 00:00: into [place] cream 00 vagina at Medical bedtime. Branch fluconazole Yes [id number] 150mg Take 1 Univers (DIFLUCAN) 9-14 tablet by ity of 150 mg 00:00: mouth [place] tablet 00 weekly. Medical Branch terconazole Yes [id number] 1{appli Insert 1 Univers 0.8 % 9-14 cator} Applicator ity of vaginal 00:00: into [place] cream 00 vagina at Medical bedtime. Branch fluconazole Yes [id number] 150mg Take 1 Univers (DIFLUCAN) 9-14 tablet by ity of 150 mg 00:00: mouth [place] tablet 00 weekly. Medical Branch terconazole Yes [id number] 1{appli Insert 1 Univers 0.8 % 9-14 cator} Applicator ity of vaginal 00:00: into [place] cream 00 vagina at Medical bedtime. Branch fluconazole Yes [id number] 150mg Take 1 Univers (DIFLUCAN) -14 tablet by ity of 150 mg 00:00: mouth [place] tablet 00 weekly. Medical Branch terconazole 2021- No [id number] 1{appli Insert 1 Univers 0.8 % 11-15 cator} Applicator ity o f vaginal 00:00: 00:00 into [place] cream 00 :00 vagina at Medical bedtime. Branch fluconazole 2021- No [id number] 150mg Take 1 Univers (DIFLUCAN) 11-15 tablet by ity of 150 mg 00:00: 00:00 mouth [place] tablet 00 :00 weekly. Medical Branch terconazole 2021- No [id number] 1{appli Insert 1 Univers 0.8 % 11-15 cator} Applicator ity o f vaginal 00:00: 00:00 into [place] cream 00 :00 vagina at Medical bedtime. Branch fluconazole 2021- No [id number] 150mg Take 1 Univers (DIFLUCAN) 11-15 tablet by ity of 150 mg 00:00: 00:00 mouth [place] tablet 00 :00 weekly. Medical Branch fluconazole 2021- No [id number] 150mg Take 1 Univers (DIFLUCAN) 11-15 tablet by ity of 150 mg 00:00: 00:00 mouth [place] tablet 00 :00 now for 1 Medical dose. Branch fluconazole 2021- No [id number] 150mg Take 1 Univers (DIFLUCAN) 11-15 tablet by ity of 150 mg 00:00: 00:00 mouth [place] tablet 00 :00 now for 1 Medical dose. Branch NUVARING 2019-03 Yes [id number] 1{each} Insert 1 Univers (NUVARING) 1-30 Each into ity of 0.12-0.015 00:00: vagina [place] mg/24 hr 00 once every Medic al vaginal month. Branch insert Insert vaginally and leave in place for 3 consecutiv e weeks, then remove for 1 week. NUVARING 2019-03 Yes [id number] 1{each} Insert 1 Univers (NUVARING) 1-30 Each into ity of 0.12-0.015 00:00: vagina [place] mg/24 hr 00 once every Medic al vaginal month. Branch insert Insert vaginally and leave in place for 3 consecutiv e weeks, then remove for 1 week. NUVARING 2019-03 Yes [id number] 1{each} Insert 1 Univers (NUVARING) 1-30 Each into ity of 0.12-0.015 00:00: vagina [place] mg/24 hr 00 once every Medic al vaginal month. Branch insert Insert vaginally and leave in place for 3 consecutiv e weeks, then remove for 1 week. NUVARING 2019-03- No [id number] 1{each} Insert 1 Univers (NUVARING) 1-30 10-04 Each into ity of 0.12-0.015 00:00: 00:00 vagina [place] mg/24 hr 00 :00 once every Medic al vaginal month. Branch insert Insert vaginally and leave in place for 3 consecutiv e weeks, then remove for 1 week. NUVARING 2019-03- No [id number] 1{each} Insert 1 Univers (NUVARING) 130 10-04 Each into ity of 0.12-0.015 00:00: 00:00 vagina [place] mg/24 hr 00 :00 once every Medic al vaginal month. Branch insert Insert vaginally and leave in place for 3 consecutiv e weeks, then remove for 1 week. NUVARING 2019-03- No [id number] 1{each} Insert 1 Univers (NUVARING) 04-02 10-04 Each into ity of 0.12-0.015 00:00: 00:00 vagina [place] mg/24 hr 00 :00 once every Medic al vaginal month. Branch insert Insert vaginally and leave in place for 3 consecutiv e weeks, then remove for 1 week. Immunizations Ordered Filled Date Status Comments Source Immunization Name Immunization Name [facility] 2011-08-03 Completed University of 00:00:00 [facility] TD 2011-08-03 Completed University of 00:00:00 [facility] TDAP 2011-08-03 Completed University of 00:00:00 [facility] TDAP 2011-08-03 Completed University of 00:00:00 [facility] TDAP 2011-08-03 Completed University of 00:00:00 [facility] TDAP 2011-08-03 Completed University of 00:00:00 [facility] TDAP 2011-08-03 Completed University of 00:00:00 [place] [facility] [place] TDAP 2011-08-03 Completed University of 00:00:00 [facility] TDAP 2011-08-03 Completed University of 00:00:00 [facility] TDAP 2011-08-03 Completed University of 00:00:00 [facility] TDAP 2011-08-03 Completed University of 00:00:00 [facility] TDAP 2011-08-03 Completed University of 00:00:00 [facility] Rubella 2006-08-17 Completed University of 00:00:00 [facility] Rubella 2006-08-17 Completed University of 00:00:00 [facility] Rubella 2006-08-17 Completed University of 00:00:00 [facility] Rubella 2006-08-17 Completed University of 00:00:00 [facility] Rubella 2006-08-17 Completed University of 00:00:00 [facility] Rubella 2006-08-17 Completed University of 00:00:00 [facility] Rubella 2006-08-17 Completed University of 00:00:00 [facility] Rubella 2006-08-17 Completed University of 00:00:00 [facility] Rubella 2006-08-17 Completed University of 00:00:00 [facility] Rubella 2006-08-17 Completed University of 00:00:00 [facility] Rubella 2006-08-17 Completed University of 00:00:00 [facility] Rubella 2006-08-17 Completed University of 00:00:00 [facility] Rubella Unknown Completed [facility] TDAP Unknown Completed [facility] Rubella Unknown Completed [facility] TDAP Unknown Completed [facility] Rubella Unknown Completed [facility] TDAP Unknown Completed [facility] Rubella Unknown Completed [facility] TDAP Unknown Completed [facility] Rubella Unknown Completed [facility] TDAP Unknown Completed [facility] Rubella Unknown Completed [facility] TDAP Unknown Completed [facility] Rubella Unknown Completed [facility] TDAP Unknown Completed [facility] Vital Signs Vital Name Observation Time Observation Value Comments Source Systolic blood 2022 14:43:00 120 mm[Hg] Univer sity of pressure [place] [facility] Diastolic blood 2022 14:43:00 69 mm[Hg] Unive rsity of pressure [place] [facility] Heart rate 2022 14:43:00 74 /min Universi ty of [place] [facility] Body temperature 2022 14:43:00 36.56 Cami Univ ersity of [place] [facility] Respiratory rate 2022 14:43:00 18 /min Univ ersity of [place] [facility] Body height 2022 14:43:00 162.6 cm Universi ty of [place] [facility] Body weight 2022 14:43:00 111.698 kg Universi ty of [place] [facility] BMI 2022 14:43:00 42.27 kg/m2 Universi ty of [place] [facility] Systolic blood 2022-01-23 20:39:00 131 mm[Hg] Univer sity of pressure [place] [facility] Diastolic blood 2022-01-23 20:39:00 80 mm[Hg] Unive rsity of pressure [place] [facility] Heart rate 2022-01-23 20:39:00 86 /min Universi ty of [place] [facility] Body temperature 2022-01-23 20:39:00 36.78 Cami Univ ersity of [place] [facility] Respiratory rate 2022-01-23 20:39:00 19 /min Univ ersity of [place] [facility] Body height 2022-01-23 20:39:00 162.6 cm Universi ty of [place] [facility] Body weight 2022-01-23 20:39:00 105.597 kg Universi ty of [place] [facility] BMI 2022-01-23 20:39:00 39.96 kg/m2 Universi ty of [place] [facility] Systolic blood 2021-12-05 14:51:00 122 mm[Hg] Univer sity of pressure [place] [facility] Diastolic blood 2021-12-05 14:51:00 74 mm[Hg] Unive rsity of pressure [place] [facility] Heart rate 2021-12-05 14:51:00 69 /min Universi ty of [place] [facility] Body temperature 2021-12-05 14:51:00 36.56 Cami Univ ersity of [place] [facility] Respiratory rate 2021-12-05 14:51:00 18 /min Univ ersity of [place] [facility] Body weight 2021-12-05 14:51:00 104.01 kg Universi ty of [facility] BMI 2021-12-05 14:51:00 38.16 kg/m2 Universi ty [facility] Systolic blood 2021-11-15 14:34:00 139 mm[Hg] Univer sity of pressure [facility] Diastolic blood 2021-11-15 14:34:00 86 mm[Hg] Unive rsity of [facility] Heart rate 2021-11-15 14:34:00 93 /min Universi ty [facility] Body temperature 2021-11-15 14:34:00 36.5 [facility]i [facility] 2021-11-15 14:34:00 18 /min [facility] Body weight 2021-11-15 14:34:00 105.552 kg Universi ty [facility] BMI 2021-11-15 14:34:00 38.72 kg/m2 Universi [facility] Procedures Procedure Date / Time Performed Performing Clinician Sour e CONSENT/REFUSAL FOR 2022 14:16:14 Doctor Unassigned, No Un [facility] DIAGNOSIS AND [facility] TREATMENT ASSIGNMENT OF BENEFITS 2022 14:15:56 Doctor Unassigned, No [facility] Encounters Start End Encounter Admission Attending Care Care Encounter Source Date/Time Date/Time Type Type Clinicians Facility Department ID 2022-09-02 2022-09-02 Telephone Sonal [facility] 1.2.840.114 [id number] Univers 00:00:00 00:00:00 Daisy A CRAS [id number] [facility] 4.2.7.2.686 Tam as MATERNAL [id number] Med ical & CHILD [address] [place] [address] 2022-09-01 2022-09-01 Case Sonal [facility] 1.2.840.114 [id number] Univers 00:00:00 00:00:00 Management Daisy A CRAS 350.1.13.[address] [facility] 4.2.7.2.686 Tam as MATERNAL [id number] Med ical & CHILD [address] [place] [address] 2022-09-01 2022-09-01 Patient Sonal [facility] 1.2.840.114 [id number] Univers 00:00:00 00:00:00 Secure Msg Daisy Patel CRAS 350.1.13.[address] [facility] 4.2.7.2.686 Tam as MATERNAL [id number] [facility] & [address] 2022 2022 Outpatient R SONAL [facility] [id number] Univers 09:30:00 10:35:54 [facility] 2022 Office Sonal [facility] 1.2.840.114 [id number] Univers 09:30:00 10:35:54 Visit Daisy Patel CRAS 350.1.13.[address] [facility] 4.2.7.2.686 Tam as MATERNAL [id number] [facility] & [address] 2022 2022 Orders Doctor [place] 1.2.840.114 [id number] Univers 00:00:00 00:00:00 Only Unassigned, SIMON 350.1.13.10 ity of [place] [id number] Tam as [id number] [address] 2022-01-23 2022-01-23 Outpatient R SONAL [facility] [id number] Univers 14:30:00 15:08:13 DAISY [facility] 2022-01-23 2022-01-23 Office Provider, TeshaRmchp [facility] 1 .2.840.114 [id number] Univers 14:30:00 15:08:13 Visit Daisy Pruitt CRAS 350.1.13.[address] [facility] 4.2.7.2.686 Tam as MATERNAL [id number] [facility] & CHILD [address] [place] [address] 2022-01-18 2022-01-18 Patient Ruben [facility] 1.2.840.114 [id number] Univers 00:00:00 00:00:00 Secure Msg Roshunda R CRAS 350.1.13.10 ity of REGIONAL 4.2.7.2.686 Tam as MATERNAL [id number] Med ical & CHILD [address] [place] [address] 2021-12-12 2021-12-12 Outpatient R ANITA HERRERA [facility] [id number] Univers 00:00:00 00:00:00 ANITA HERRERA [facility] 2021-12-11 2021-12-11 Outpatient R RUBEN [facility] [id number] Univers 13:15:00 13:15:00 REBEKA santiago [facility] 2021-12-05 2021-12-05 [facility] [id number] Univers 09:45:00 10:43:22 ALYSON santiago [facility] 2021-12-05 2021-12-05 Office [facility] 1 .2.840.114 [id number] Univers 09:45:00 10:43:22 Visit Alyson Demarco CRAS 350.1.13. [address] [facility] 4.2.7.2.686 Tam as MATERNAL [id number] Med ical & CHILD [address] [place] [address] 2021-12-05 2021-12-05 Letter Jamal [facility] 1.2.840.114 [id number] Univers 00:00:00 00:00:00 (Out) Anita Steele CRAS 350.1.13.10 i ty of REGIONAL 4.2.7.2.686 Tam as MATERNAL [id number] Med ical & CHILD [address] [place] [address] 2021-11-30 2021-11-30 Patient Ruben [facility] 1.2.840.114 [id number] Univers 00:00:00 00:00:00 Secure g Rebeka R CRAS 350.1.13.[address] [facility] 4.2.7.2.686 Tam as MATERNAL [id number] [facility] ical & CHILD [address] [place] [address] 2021-11-15 2021-11-15 Outpatient R RUBEN [facility] [id number] Univers 09:45:00 09:53:20 ROSCHINANDA ity o f [facility] 2021-11-15 2021-11-15 [facility] 1.2.840.114 [id number] Univers 09:45:00 09:53:20 Visit Jerela R CRAS 350.1.13.10 ity of REGIONAL 4.2.7.2.686 Tam as MATERNAL [id number] [facility] ical & CHILD [address] [place] [address] 2021-09-29 2021-09-29 Outpatient FADIJOSH_KASSANDRA [facility] [address] [place] 00:00:00 00:00:00 HN 0729 da [facility] 2021-09-26 2021-09-26 Office [facility] 1.2.840.114 [id number] Univers 15:45:00 16:07:59 Visit Rebeka R CRAS 350.1.13.[address] [facility] 4.2.7.2.686 Tam as MATERNAL [id number] [facility] & CHILD [address] [place] [address] 2021-09-26 2021-09-26 [facility] [id number] Univers 15:45:00 16:07:59 MAGALIENDA ity o [facility] 2021-09-26 2021-09-26 Outpatient R RUBEN [facility] [id number] Univers 15:45:00 15:45:00 MAGALIENDA ity o [facility] 2021-09-25 2021-09-25 Patient [facility] [id number] Univers 00:00:00 00:00:00 Secure Msg Alyson C CRAS 350.1.13.10 ity of REGIONAL 4.2.7.2.686 Tam as MATERNAL [id number] [facility] & CHILD [address] [place] [address] 2021-06-30 2021-06-30 Telephone [facility] [id number] Univers 00:00:00 00:00:00 Roschinanda R CRAS 350.1.13.10 ity of REGIONAL 4.2.7.2.686 Tam as MATERNAL [id number] [facility] ical & CHILD [address] [place] [address] 2021-06-27 2021-06-27 Office Miranda [facility] 1.2.840.114 [id number] Univers 12:45:00 13:20:57 [facility] CRAS 350.1.13.10 ity of REGIONAL 4.2.7.2.686 Tam as MATERNAL [id number] [facility] & CHILD [address] [place] [address] 2021-06-27 2021-06-27 Outpatient R RUBEN [facility] [id number] Univers 12:45:00 13:20:57 REBEKA salazar pamela [facility] 2021-06-27 2021-06-27 Outpatient R R[facility]EN [facility] [id number] Univers 12:45:00 12:45:00 REBEKA king o f [facility] 2021-06-26 2021-06-26 Patient [facility] [id number] Univers 00:00:00 00:00:00 Secure Msg Alyson C CRAS 350.1.13.10 ity of REGIONAL 4.2.7.2.686 Tam as MATERNAL [id number] [facility] & CHILD [address] [place] [address] 2021-05-23 2021-05-23 Patient Nilam [facility] [id number] Univers 00:00:00 00:00:00 Secure Msg Alyson C CRAS 350.1.13.10 ity of REGIONAL 4.2.7.2.686 Tam as MATERNAL [id number] [facility] ical & CHILD [address] [place] [address] 2021-05-22 2021-05-22 Office [facility] [id number] Univers 14:15:00 14:50:46 Visit Alyson C CRAS 350.1.13.10 ity of REGIONAL 4.2.7.2.686 Tam as MATERNAL [id number] [facility] ical & CHILD [address] [place] [address] 2021-05-22 2021-05-22 Outpatient R NILAM [facility] [id number] Univers 14:15:00 14:50:46 ALYSON salazar [facility] 2021-05-22 2021-05-22 Outpatient R NILAM [facility] [facility] [id number] Univers 14:15:00 14:15:00 ALYSON salazar [facility] 2021-03-10 2021-03-10 [facility]phone [facility] [id number] Univers 00:00:00 00:00:00 Rebeka R CRAS 350.1.13.[address] [facility] 4.2.7.2.686 Tam as MATERNAL [phone] [facility] ical & CHILD [address] [place] [address] 2021-02-21 2021-02-21 Outpatient [facility] [id number] Univers 15:00:00 15:36:35 REBEKA salazar [facility] 2021-02-21 2021-02-21 Office [facility] 1.2.840.114 [id number] Univers 15:00:00 15:36:35 Visit Yvettecorrina R CRAS 350.1.13.[address] [facility] 4.2.7.2.686 Tam as MATERNAL [phone] [facility] & [address] 2021-02-21 2021-02-21 Outpatient [facility] [id number] Univers 15:00:00 15:36:35 REBEKA king o [facility] 2021-02-21 2021-02-21 [facility] [id number] Univers 15:00:00 15:36:35 JERELAmanda carlosy o [facility] 2021-02-21 2021-02-21 Orders Doctor ABDI 1.2.840.114 [id number] Univers 00:00:00 00:00:00 Only Unassigned, SIMON 350.1.13.10 ity of [place] [facility] 4.2.7.2.686 Tam as [phone] [address] 2021-01-19 2021-01-19 Outpatient R [facility] [id number] Univers 14:30:00 14:30:00 ANITA king [facility] 2021-01-13 2021-01-13 Outpatient Idris GARCIA [facility] [id number] Univers 09:45:00 09:45:00 ANITA king [facility] 2020-12-08 2020-12-[address] [facility] [id number] Univers 14:22:47 15:24:04 Visit Alyson Carter CRAS 350.1.13.[address] [facility] 4.2.7.2.686 Tam as MATERNAL [phone] [facility] & CHILD [address] [place] [address] 2020-12-08 2020-12-08 [facility] [id number] Univers 14:30:00 14:30:00 ALYSON king o f [facility] 2020-12-08 2020-12-08 Orders Doctor [place] 1.2.840.114 [id number] Univers 00:00:00 00:00:00 Only Unassigned, SIMON 350.1.13.10 ity of [place] [facility] 4.2.7.2.686 Tam as [id number] [address] 2020-12-07 2020-12-07 Telephone [facility] 1.2.840.114 [id number] Univers 00:00:00 00:00:00 Alyson C CRAS 350.1.13.[address] [facility] 4.2.7.2.686 Tam as MATERNAL [id number] [facility] & CHILD [address] [place] [address] 2020-12-06 2020-12-[address] [facility] [id number] Univers 14:48:32 15:30:07 Visit Alyson C CRAS 350.1.13.[address] [facility] 4.2.7.2.686 Tam as MATERNAL [phone] [address] 2020-12-06 2020-12-06 [facility] [id number] Univers 15:00:00 15:00:00 LAYSON king o pamela [facility] 2020-12-06 2020-12-06 Outpatient R NIL[facility] [id number] Univers 15:00:00 15:00:00 ALYSON king o pamela [facility] 2020-06-30 2020-06-30 Office [facility] [id number] Univers 14:05:27 15:12:13 Visit Alyson Carter CRAS 350.1.13.[address] [facility] 4.2.7.2.686 Tam as MATERNAL [phone] Med ical & CHILD [address] [place] [address] 2020-06-30 2020-06-30 Outpatient R NIL[facility] [id number] Univers 14:15:00 14:15:00 LAYSON salazar [facility] 2020-05-24 2020-05-24 Outpatient R [facility]AC[facility]LE [facility] [id number] Univers 11:40:00 11:40:00 TRISH carloslynn [facility] 2020-05-24 2020-05-24 Laboratory Lab, Adc Fam Pob I [facility] 1.2. [id number] Univers 11:19:39 11:39:39 Only Rachelle [facility] 350.1.13.10 ity [facility] 4.2.7.2.686 Tam as Professio [phone] [facility] [address] 2020-05-24 2020-05-24 Patient Az [facility] 1.2.840.114 [id number] Univers 00:00:00 00:00:00 Outreach Bernardo PRIMARY 350.1.13.[address] [facility] 4.2.7.2.686 [place] SPICER [phone] [place] dic[address] 2020-02-02 2020-02-02 Telephone Jose [facility] 1.2.840.114 [id number] Univers 00:00:00 00:00:00 Anita No CRAS 350.1.13.[address] [facility] 4.2.7.2.686 Tam as MATERNAL [phone] Med ical & CHILD [address] [place] [address] 2020-02-01 2020-02-01 Office [facility] [id number] Univers 08:47:23 09:37:30 Visit Anita No CRAS 350.1.13.[address] [facility] 4.2.7.2.686 Tam as MATERNAL [phone] [facility] & [address] 2020-02-01 2020-02-01 [facility] [id number] Univers 08:45:00 08:45:00 ANITA king [facility] 2020-02-01 2020-02-01 Orders Doctor [place] 1.2.840.114 [id number] Univers 00:00:00 00:00:00 Only Unassigned, SIMON 350.1.13.10 ity of [place] [facility] 4.2.7.2.686 Tam as [phone] [address] 2019-10-14 2019-10-14 Office [facility] [id number] Univers 13:27:42 14:28:00 Visit Alyson Carter CRAS 350.1.13.[address] [facility] 4.2.7.2.686 Tam as MATERNAL [id number] [address] 2019-10-14 2019-10-14 Outpatient [facility] [id number] Univers 13:30:00 13:30:00 ALYSON salazar f [facility] 2019-10-08 2019-10-08 Telephone [facility] 1.2.840.114 [id number] Univers 00:00:00 00:00:00 Anita No CRAS 350.1.13.[address] [facility] 4.2.7.2.686 Tam as MATERNAL [phone] [address] 2019-10-08 2019-10-08 Patient Doctor [facility] 1.2.840.114 [id number] Univers 00:00:00 00:00:00 Secure Msg Unassigned, CRAS 350.1.13.[address] [place] [facility] 4.2.7.2.686 Tam as MATERNAL [phone] [facility] & CHILD [address] [place] [address] 2019-05-11 2019-05-11 Nurse Visit, TeshaRmchp Nurse [facility] 1.2 .840.114 [id number] Univers 10:09:08 10:56:40 Visit Anita Garcia CRAS 350.1.13.10 [facility] 4.2.7.2.686 Tam as MATERNAL [phone] [facility] & CHILD [address] [place] [address] 2019-05-11 2019-05-11 Outpatient R [facility] [id number] [facility] 10:00:00 10:00:00 ANITA king [facility] Results This patient has no known results.
[2023-01-18 05:30] LABS: Absolute Lymphocytes (CBC) 2.8 K/uL (0.7-4.9); Hematocrit 35.9 % (36.0-45.0); Lymphocytes % 31.3 % (15.3-44.8); MCV 89.9 fL (80-100); MPV 7.6 fL (7.6-11.3); Platelets 218 thou/uL (152-406)
[2023-01-18] MEDS ORDERED: METOCLOPRAMIDE 10 MG/2mL INJ ONE (05:42)
[2023-01-18] MEDS ORDERED: MORPHINE 4 MG/ML SYR ONE (05:42)
[2023-01-18] MEDS ORDERED: ONDANSETRON 4 MG/2 ML VIAL ONE (05:42)
[2023-01-18] MEDS ORDERED: KETOROLAC 30 MG/ML INJ ONE (05:42)
[2023-01-18] MEDS ORDERED: DICYCLOMINE HCL 20 MG/2 ML AMP IM ONE (05:43)
[2023-01-18] MEDS ORDERED: NA CHLORIDE 0.9% 1,000 ML ONE (05:43)
[2023-01-18 05:49] LABS: Albumin 3.5 g/dL (3.4-5.0); Bilirubin Total 0.6 mg/dL (0.2-1.0); Potassium 3.8 mEq/L (3.5-5.1)
[2023-01-18 08:54] LABS: Specific Gravity > 1.030 (1.005-1.030)
[2023-01-18 08:59] LABS: Specific Gravity > 1.030 (1.005-1.030); Urine Bacteria >50 /HPF (<20); Urine Bilirubin NEGATIVE (Negative); Urine Blood Negative (Negative); Urine Clarity Extremely Turbid (Clear); Urine Color Yellow (Yellow); Urine Glucose NEGATIVE (Negative); Urine Mucus 4+ /HPF (None Seen); Urine Protein 1+ (Negative); Urine Urobilinogen 3+ (Normal)
--- NOTE | 2023-01-18 10:00 | RAD REPORT ---
EXAM DESCRIPTION: CT - Abdomen Pelvis W Contrast - 01/18/2023 9:18 am CLINICAL HISTORY: Abdominal pain COMPARISON: November 2022 TECHNIQUE: Computed axial tomography of the abdomen pelvis was obtained. 100 cc Isovue-300 was admin istered intravenously. Oral contrast was not requested which limits evaluation of bowel and appendix All CT scans are performed using dose optimization technique as appropriate and may include automated exposure control or mA/KV adjustment according to patient size. FINDINGS: Multiple gallstones. Gallbladder wall does not appear thickened. Liver, spleen, pancreas, adrenals and kidneys appear unremarkable 4 centimeter complex cystic mass left adnexa. No significant free fluid IUD in place IMPRESSION: Cholelithiasis without evidence of cholecystitis. 4 centimeter complex cystic mass left adnexa. Follow-up ultrasound couple months recommended to asses s stability/resolution
--- NOTE | 2023-01-18 10:17 | ER ---
Nurse's Notes [facility] Name: Alicia Osborne Age: 37 yrs Sex: Female : 1985 Arrival Date: 01/18/2023 Time: 04:50 Bed 4 Private MD: Diagnosis: Other cholelithiasis without obstruction;Other abdominal pain Presentation: 01/18 05:00 Chief complaint: Patient states: epigastric pain since yesterday, with nausea, wo rv vomiting/diarrhea. few months ago, was seen for the same thing and diagnosed with pancreatitis. being treated as outpatient. Coronavirus screen: At this time, the client does not indicate any symptoms associated with coronavirus-19. Ebola Screen: No symptoms or risks identified at this time. Initial Sepsis Screen: Does the patient meet any 2 criteria? No. Patient's initial sepsis screen is negative. Does the patient have a suspected source of infection? No. Patient's initial sepsis screen is negative. Risk Assessment: Do you want to hurt yourself or someone else? Patient reports no desire to harm self or others. Onset of symptoms was January 18, 2023. 05:00 Method Of Arrival: Ambulatory rv 05:00 Acuity: PORTIA 3 rv Triage Assessment: 05:02 General: Appears uncomfortable, Behavior is calm, cooperative. Pain: Complains of pain rv in epigastric area. Neuro: Level of Consciousness is awake, alert, obeys commands, Oriented to person, place, time, situation. Cardiovascular: Capillary refill < 3 seconds Patient's skin is warm and dry. Respiratory: Airway is patent Respiratory effort is even, unlabored. GI: Abdomen is round non-distended, Reports upper abdominal pain, nausea. : No signs and/or symptoms were reported regarding the genitourinary system. Derm: Skin is intact. Historical: - Allergies: 05:02 No Known Allergies; rv - PMHx: 05:02 Pancreatitis; rv - PSHx: 05:02 None; rv - Immunization history:: Adult Immunizations up to date. - Social history:: Smoking status: Patient denies any tobacco usage or history of. - Family history:: not pertinent. Screenin:00 [facility] ED Fall Risk Assessment (Adult) History of falling in the last 3 months, jw7 including since admission No falls in past 3 months (0 pts) Confusion or Disorientation No (0 pts) Intoxicated or Sedated No (0 pts) Impaired Gait No (0 pts) Mobility Assist Device Used No (0 pt) Altered Elimination No (0 pt) Score/Fall Risk Level 0 - 2 = Low Risk Oriented to surroundings, Maintained a safe environment. Abuse screen: Denies threats or abuse. Denies injuries from another. Nutritional screening: No deficits noted. Tuberculosis screening: No symptoms or risk factors identified. Assessment: 05:24 General: see triage assessment. jw7 06:39 Reassessment: Patient appears in no apparent distress at this time. Patient and/or jw7 family updated on plan of care and expected duration. Pain level reassessed. Patient is alert, oriented x 3, equal unlabored respirations, skin warm/dry/pink. Patient states feeling better. Patient states symptoms have improved. 07:00 Reassessment: Patient appears in no apparent distress at this time. No changes from kc6 previously documented assessment. Patient and/or family updated on plan of care and expected duration. Pain level reassessed. Patient is alert, oriented x 3, equal unlabored respirations, skin warm/dry/pink. Patient denies pain at this time. Patient states feeling better. Patient states symptoms have improved. 08:00 Reassessment: Patient appears in no apparent distress at this time. No changes from kc6 previously documented assessment. Patient and/or family updated on plan of care and expected duration. Pain level reassessed. Patient is alert, oriented x 3, equal unlabored respirations, skin warm/dry/pink. 09:00 Reassessment: Patient appears in no apparent distress at this time. No changes from kc6 previously documented assessment. Patient and/or family updated on plan of care and expected duration. Pain level reassessed. Patient is alert, oriented x 3, equal unlabored respirations, skin warm/dry/pink. 10:00 Reassessment: Patient appears in no apparent distress at this time. No changes from kc6 previously documented assessment. Patient and/or family updated on plan of care and expected duration. Pain level reassessed. Patient is alert, oriented x 3, equal unlabored respirations, skin warm/dry/pink. Vital Signs: 05:00 BP 122 / 73; Pulse 80; Resp 18; Temp 98; Pulse Ox 100% ; Weight 104.33 kg; Height 5 ft. rv 4 in. ; 05:00 BP 128 / 81; Pulse 88; Resp 17 S; Pulse Ox 100% on R/A; jw7 06:00 BP 97 / 54; Pulse 68; Resp 16 S; Pulse Ox 98% on R/A; jw7 08:26 BP 126 / 60; Pulse 72; Resp 18; Pulse Ox 98% on R/A; ph 10:07 BP 96 / 52; Pulse 72; Resp 16 S; Pulse Ox 100% on R/A; kc6 05:00 Body Mass Index 39.48 (104.33 kg, 162.56 cm) rv ED Course: 04:58 Patient arrived in ED. gm2 05:00 Patient has correct armband on for positive identification. Bed in low position. Call [facility] light in reach. 05:02 Triage completed. rv 05:02 Arm band placed on right wrist. rv 05:10 Wai Kaiser MD is Attending Physician. sp4 05:23 Initial lab(s) drawn, by ny, sent to lab. Inserted saline lock: 20 gauge in left jw7 antecubital area, using aseptic technique. Blood collected. 05:53 Roselyn Vance, RN is Primary Nurse. jw7 06:05 US Abdomen Limited In Process Unspecified. EDMS 07:00 Report received from TREVOR COLON. kc6 07:05 Attending Physician role handed off by Wai Kaiser MD rn 07:05 Donnie Dominguez MD is Attending Physician. rn 08:23 Test, Urine Sent. hb 08:23 Urinalysis w/ reflexes Sent. hb 09:20 CT Abd/Pelvis - IV Contrast Only In Process Unspecified. EDMS 10:16 Carlos Francisco MD is Referral Physician. rn 10:34 No provider procedures requiring assistance completed. IV discontinued, intact, kc6 bleeding controlled, No redness/swelling at site. Pressure dressing applied. Administered Medications: 05:53 Drug: Dicyclomine IM 20 mg IM once {Note: pt requested a half dose in each arm. jw7 Received 10mg/1ml in Right Deltoid and 10mg/1ml in Left Deltoid for combined dose of 20mg/2ml.} Route: IM; Site: left deltoid; 09:09 Follow up: Response: No adverse reaction kc6 05:55 Drug: NS 0.9% IV 1000 ml IV at 1 bolus Per protocol; 1000 mL bolus Route: IV; Rate: 1 jw7 bolus; Site: left antecubital; 09:08 Follow up: Response: No adverse reaction; IV Status: Completed infusion; IV Intake: kc6 1000ml 05:55 Drug: Ondansetron IVP 4 mg IVP once; over 2 minutes Route: IVP; Site: left antecubital; [facility] 09:08 Follow up: Response: No adverse reaction kc6 05:55 Drug: morphine IVP or IV 4 mg IVP once over 4 mins Route: IVP; Infused Over: 4 mins; jw7 Site: left antecubital; 09:09 Follow up: Response: No adverse reaction; Pain is decreased; RASS: Drowsy (-1) kc6 05:55 Drug: Ketorolac IVP 30 mg IVP once Route: IVP; Site: left antecubital; [facility] 09:09 Follow up: Response: No adverse reaction; Pain is decreased kc6 05:55 Drug: metoCLOPramide IVP 10 mg IVP once; over 1 to 2 minutes Route: IVP; Site: left [facility] antecubital; 09:09 Follow up: Response: No adverse reaction; Nausea is decreased; Vomiting decreased kc6 Medication: 08:31 VIS not applicable for this client. ph Intake: 09:08 IV: 1000ml; Total: 1000ml. kc6 Outcome: 10:17 Discharge ordered by . rn 10:35 Discharged to home ambulatory, with family, kc6 10:35 Condition: improved 10:35 Discharge instructions given to patient, Instructed on discharge instructions, follow up and referral plans. medication usage, Demonstrated understanding of instructions, follow-up care, medications, Prescriptions given X 2, 10:35 Patient left the ED. kc6 Signatures: Dispatcher [employer] EDMS Donnie Dominguez MD MD rn Hall, Patricia, RN RN ph Baxter, Heather, RN RN hb Vicente, Ronaldo, RN RN rv Waits, Jodi, RN RN jw7 Silvia Vazquez RN RN kc6 Wai Kaiser MD MD sp4 [place], [facility]
--- NOTE | 2023-01-18 10:17 | EDPHYS ---
Physician Documentation [facility] Name: Alicia Osborne Age: 37 yrs Sex: Female : 1985 Arrival Date: 01/18/2023 Time: 04:50 Bed 4 Private MD: ED Physician Donnie Dominguez HPI: 01/18 05:11 This 37 yrs old Black Female presents to ER via Ambulatory with complaints of Abdominal sp4 Pain. 05:50 37-year-old female presents with acute onset of right upper quadrant and epigastric sp4 pain starting yesterday. Patient has recent history of pancreatitis noted on her ER visit on 11/21/2022 . Patient reported nausea without vomiting moderate right upper and epigastric pain. . Historical: - Allergies: 05:02 No Known Allergies; rv - PMHx: 05:02 Pancreatitis; rv - PSHx: 05:02 None; rv - Immunization history:: Adult Immunizations up to date. - Social history:: Smoking status: Patient denies any tobacco usage or history of. - Family history:: not pertinent. ROS: 05:57 Constitutional: Negative for fever, chills, and weight loss, Eyes: Negative for injury, sp4 pain, redness, and discharge, Abdomen/GI: Positive abdominal pain positive nausea, negative diarrhea negative vomiting, negative constipation 05:57 All other systems are negative, Exam: 05:57 Constitutional: This is a well developed, well nourished patient who is awake, alert, sp4 and in no acute distress. Head/Face: Normocephalic, atraumatic. Eyes: Pupils equal round and reactive to light, extra-ocular motions intact. Lids and lashes normal. Conjunctiva and sclera are not injected. Cornea within normal limits. Periorbital areas with no swelling, redness, or edema. ENT: Nares patent. No nasal discharge, no septal abnormalities noted. Tympanic membranes are normal and external auditory canals are clear. Oropharynx with no redness, swelling, or masses, exudates, or evidence of obstruction, uvula midline. Mucous membranes moist. Neck: Trachea midline, no thyromegaly or masses palpated, and no cervical lymphadenopathy. Supple, full range of motion without nuchal rigidity, or vertebral point tenderness. Chest/axilla: Normal chest wall appearance and motion. Nontender with no deformity. No lesions are appreciated. Cardiovascular: Regular rate and rhythm with a normal S1 and S2. No gallops, murmurs, or rubs. Normal PMI, no JVD. No pulse deficits. Respiratory: Lungs have equal breath sounds bilaterally, clear to auscultation and percussion. No rales, rhonchi or wheezes noted. No increased work of breathing, no retractions or nasal flaring. Abdomen/GI: Soft, there is epigastric and right upper quadrant tenderness. There is also Syonell rebound tenderness in the right upper quadrant. No distention, no rigidity Back: No spinal tenderness. No costovertebral tenderness. Skin: Warm, dry with normal turgor. Normal color with no rashes, no lesions, and no evidence of cellulitis. MS/ Extremity: Pulses equal, no cyanosis. Neurovascular intact. Full, normal range of motion. Neuro: Awake and alert, GCS 15, oriented to person, place, time, and situation. Cranial nerves II-XII grossly intact. Motor strength 5/5 in all extremities. Sensory grossly intact. Psych: Awake, alert, with orientation to person, place and time. Behavior, mood, and affect are within normal limits Vital Signs: 05:00 BP 122 / 73; Pulse 80; Resp 18; Temp 98; Pulse Ox 100% ; Weight 104.33 kg; Height 5 ft. rv 4 in. ; 05:00 BP 128 / 81; Pulse 88; Resp 17 S; Pulse Ox 100% on R/A; jw7 06:00 BP 97 / 54; Pulse 68; Resp 16 S; Pulse Ox 98% on R/A; jw7 08:26 BP 126 / 60; Pulse 72; Resp 18; Pulse Ox 98% on R/A; ph 10:07 BP 96 / 52; Pulse 72; Resp 16 S; Pulse Ox 100% on R/A; kc6 05:00 Body Mass Index 39.48 (104.33 kg, 162.56 cm) rv MDM: 05:13 Patient medically screened. sp4 06:41 Differential Diagnosis altered mental status, sepsis, flu. Data reviewed: vital signs, sp4 nurses notes, lab test result(s), radiologic studies, CT scan, ultrasound. ED course: US - TECHNIQUE: Real-time ultrasound of the right upper quadrant with image documentation. COMPARISON: No relevant prior studies available. FINDINGS: Gallbladder: Multiple stones in the gallbladder. Gallbladder wall thickness 1.7 mm. Common bile duct: Common bile duct 5.3 mm in diameter. No stones. No dilation. Pancreas: Unremarkable as visualized. IMPRESSION: Cholelithiasis. . 07:08 Transition of care: After a detail discussion of the patient's case, care is sp4 transferred to Donnie Dominguez MD. 10:15 Counseling: I had a detailed discussion with the patient and/or guardian regarding the rn historical points, exam findings, and any diagnostic results supporting the discharge/admit diagnosis, lab results, radiology results. ED course: Patient signed out to me at shift change by Dr. Kaiser, plan was to obtain CT abdomen pelvis and if no acute findings evaluate for discharge home. Patient with slight elevation of AST and ALT on LFTs, but patient also frequent drinker. No evidence of acute pancreatitis at this time. Ultrasound and CT showed cholelithiasis without cholecystitis or complications thereof. Offered patient observation and surgical consultation, patient declines states needs to go home. Chooses to follow-up with surgery as an outpatient. No indication at this time for emergent procedure so will discharge patient with return precautions. I have personally reviewed all of the results, including but not limited to blood tests and imaging deemed necessary to safely discharge this patient at this time. All results given to and printed out for patient. I personally went over all the results with the patient and answered all questions. Patient will follow-up with PCP and or specialist as discussed. Return precautions given and understood.. 01/18 05:12 Order name: CBC with Diff; Complete Time: 06:41 [facility] 01/18 05:12 Order name: CMP; Complete Time: 06:41 [facility] 01/18 05:12 Order name: Lipase; Complete Time: 06:41 4 01/18 05:12 Order name: Test, Urine; Complete Time: 09:01 4 01/18 05:12 Order name: Urinalysis w/ reflexes; Complete Time: 09: [facility] 01/18 05:21 Order name: CT Abd/Pelvis - IV Contrast Only; Complete Time: 10:08 4 01/18 05:23 Order name: US Abdomen Limited [facility] 01/18 05:12 Order name: IV Saline Lock; Complete Time: 05:23 [facility] 01/18 05:12 Order name: Labs collected and sent; Complete Time: 05:23 sp4 Administered Medications: 05:53 Drug: Dicyclomine IM 20 mg IM once {Note: pt requested a half dose in each arm. jw7 Received 10mg/1ml in Right Deltoid and 10mg/1ml in Left Deltoid for combined dose of 20mg/2ml.} Route: IM; Site: left deltoid; 09:09 Follow up: Response: No adverse reaction kc6 05:55 Drug: NS 0.9% IV 1000 ml IV at 1 bolus Per protocol; 1000 mL bolus Route: IV; Rate: 1 jw7 bolus; Site: left antecubital; 09:08 Follow up: Response: No adverse reaction; IV Status: Completed infusion; IV Intake: kc6 1000ml 05:55 Drug: Ondansetron IVP 4 mg IVP once; over 2 minutes Route: IVP; Site: left antecubital; [facility] 09:08 Follow up: Response: No adverse reaction kc6 05:55 Drug: morphine IVP or IV 4 mg IVP once over 4 mins Route: IVP; Infused Over: 4 mins; [facility] Site: left antecubital; 09: Follow up: Response: No adverse reaction; Pain is decreased; RASS: Drowsy (-1) kc6 05:55 Drug: Ketorolac IVP 30 mg IVP once Route: IVP; Site: left antecubital; [facility] 09:09 Follow up: Response: No adverse reaction; Pain is decreased kc6 05:55 Drug: metoCLOPramide IVP 10 mg IVP once; over 1 to 2 minutes Route: IVP; Site: left [facility] antecubital; : Follow up: Response: No adverse reaction; Nausea is decreased; Vomiting decreased kc6 Disposition Summary: 01/18/23 10:17 Discharge Ordered Notes: Location: Home rn Problem: new rn Symptoms: have improved rn Condition: Stable rn Diagnosis - Other cholelithiasis without obstruction rn - Other abdominal pain rn Followup: rn - With: Carlos Francisco MD - When: As needed - Reason: Recheck today's complaints, Re-evaluation by your physician Discharge Instructions: - Discharge Summary Sheet rn - Cholelithiasis rn Forms: - Medication Reconciliation Form rn - Thank You Letter rn - Antibiotic garnett feeder - Prescription Opioid Use rn - Patient Portal Instructions rn - Leadership Thank You Letter rn - Work release form kc6 Prescriptions: - ondansetron 4 mg Oral Tablet,disintegrating - take 1 tablet ORAL route every 8 hours As needed; 12 tablet; Refills: 0, rn Product Selection Permitted - Tramadol 50 mg Oral Tablet - take 1 tablet ORAL route every 8 hours as needed; 12 tablet; Refills: 0, rn Product Selection Permitted Signatures: Dispatcher [employer] Donnie Holm MD MD rn Vicente, Ronaldo, RN RN rv Waits, Jodi, RN RN jw7 Wai Kaiser MD MD sp4 Silvia Vazquez RN kc6
[2023-01-18 10:44] VITALS: TEMP 98
[2023-01-18 11:01] VITALS: BP 96/52; O2SAT 100
--- NOTE | 2023-01-18 11:18 | RAD REPORT ---
EXAM DESCRIPTION: US - Abdomen Exam Limited - 01/18/2023 6:03 am CLINICAL HISTORY: The patient is 37 years old and is Female; ABD PAIN TECHNIQUE: Real-time ultrasound of the right upper quadrant with image documentation. COMPARISON: No relevant prior studies available. FINDINGS: Gallbladder: Multiple stones in the gallbladder. Gallbladder wall thickness 1.7 mm. Common bile duct: Common bile duct 5.3 mm in diameter. No stones. No dilation. Pancreas: Unremarkable as visualized. IMPRESSION: Cholelithiasis. Electronically signed by: Linda Gilmore MD 01/18/2023 06:15 AM SAFETY SCIENTIST Due to temporary technical issues with the PACS/Fluency reporting system, reports are being signed by the in house radiologists without review as a courtesy to insure prompt reporting. The interpreting radiologist is fully responsible for the content of the report.
== END 2023-01-18 10:35 | disposition home or self-care (01) ==
LOC: ENDO 04:50 → ER 04:50
DX: K80.80 Other cholelithiasis without obstruction (principal)
CPT/HCPCS: 96361; 85025; 81001; 36415; 81025; 83690; 80053; 74177; 76705; 96375; 96372; 96374; 99284; Q9967; J2765; J0500; J2405; J7030

== ENCOUNTER 2023-01-20 11:20 | Emergency (ER) | payer OTHER ==
--- OUTSIDE RECORDS SUMMARY | 2023-01-20 11:23 | XMS REPORT | Continuity of Care Document ---
:1985 Author Organization [facility] t Address [address] [place] [address] [place] [id number] Care Team Providers Name Role Phone Anita Hoyos Primary Care Physician Daisy Pruitt CNM Attending Clinician DAISY PRUITT Attending Clinician Unavailable Doctor Unassigned, Petros Attending Clinician Unavailable Provider, Kalyn Temp Attending Clinician Unavailable Rebeka Rivera Attending Clinician Unavailable ANITA HERRERA Attending Clinician Unavailable ANITA HERRERA Attending Clinician Unavailable REBEKA MIRANDA Attending Clinician Unavailable ALYSON DEMARCO Attending Clinician Unavailable Alyson Allen Attending Clinician [phone] ABILIO Attending Clinician Unavailable ANITA GARCIA [...] irritation irritation 9-14 it y of 00:00: [place] 00 [facility] Yeast Yeast Disease Active Univers infection infection 9-14 ity of 00:00: [address] ASCUS of ASCUS of Disease Active Overview: Un rosario cervix cervix -07 Formattin ity of with with 00:00: g of this [place] negative negative 00 note Medica l high [...] menstrual 8-12 ity of cycle cycle 00:00: [place] [facility] Low HDL Low HDL Disease Active 2018-03 Univers (under 40) (under 40) 1-27 it y of 00:00: [place] 00 [facility] Pre-diabet Pre-diabet Disease Active 2018-03 U nivers es es 1-27 ity of 00:00: [place] [facility] Branch Screen for Screen for Disease Active 2016-03 U nivers STD STD 1-27 ity of (sexually ([place]ually [place] transmit[place] transmitte 00 Me dical d disease) d disease) Br anch BMI BMI Disease Active Univers 39.0-39.9, 39.0-39.9, 7-13 it y of adult adult 00:00: [place] 00 Medical Branch Encounter Encounter Disease Active Uni vers for for 7-13 ity of initial initial 00:00: [place] prescripti prescripti 00 Me dical on of on of Branch vaginal vaginal ring ring hormonal hormonal contracept contracept luis luis Morbid Morbid Disease Active Univers obesity obesity 7-13 ity of 00:00: [place] 00 [facility] Contracept Contracept Disease Active U nivers luis luis 5-17 [place] of management [place] [facility] Dysmenorrh Dysmenorrh Disease Active U nivers ea ea 5-17 ity of 00:00: [place] 00 [facility] Allergies, Adverse Reactions, Alerts Allergy Allergy Status Severity Reaction(s) Onset Inactive Treating Comm ents Source Name Type Date Date Clinician NO KNOWN Drug Active Univers ALLERGIE Class ity of S [facility] Social History Social Habit Start Date Stop Date Quantity Comments Source History of tobacco 2004-09-13 Cigarette Smoker University of use 00:00:00 [facility] History [place] University o f Alcohol Std Drinks [facility] History [facility] o f Alcohol Binge [facility] Sexual orientation Univer sity of [facility] Exposure to 2022-01-13 2022-01-23 Not sure University of SARS-CoV-2 (event) 00:00:00 14:08:00 [facility] History of Social 2021-12-05 2021-12-05 Univers ity of function 00:00:00 00:00:00 [facility] Alcohol intake 2019-05-11 2019-05-11 0 /d University of 00:00:00 00:00:00 [facility] History SDOH 2019-01-27 2019-01-27 2 University o f Alcohol Frequency 00:00:00 00:00:00 [facility] Branch Cigarettes smoked 2016-09-13 2016-09-13 Univers ity of current (pack per 00:00:00 00:00:00 [facility] ) - Reported Branch Cigarette 2016-09-13 2016-09-13 University of pack-years 00:00:00 00:00:00 [facility] Tobacco Comment 2016-09-13 2016-09-13 pack per day. Univer sity of 00:00:00 00:00:00 [facility] Alcohol Comment 2016-09-13 2016-09-13 social Universit y of 00:00:00 00:00:00 [facility] Tobacco use and 2016-09-13 2016-09-13 Smokeless Universit y of exposure 00:00:00 00:00:00 tobacco non-user [facility] Sex Ass[birth year] At [birth year] Universit y of 00:00:00 00:00:00 [facility] Smoking Status Start Date Stop Date Source Ex-smoker 2020-02-01 00:00:00 2020-02-01 00:00:00 Universi ty [facility] Smokes tobacco daily 2016-09-13 00:00:00 [facility] ity [facility] Medications Ordered Filled Start Stop Current Ordering Indication Dosage Frequency Signature Comments Components Source Medication Medication Date Date Medication? Clinician (SIG) Name Name metroNIDAZO 2022- No [id number] 2000mg Take 4 Univers LE 500 mg 09-03 tablets by ity of tablet 00:00: 04:59 [place] now for 1 Medical dose. Branch metroNIDAZO 2022- No [id number] 2000mg Take 4 Univers LE 500 mg 09-01 tablets by ity of tablet 00:00: 04:59 mouth in [place] 00 :00 the Medical morning Branch and 4 tablets in the evening. Do all this for 7 days. metroNIDAZO 2022- No [id number] 2000mg Take 4 Univers LE 500 mg 09-01 tablets by ity of tablet 00:00: 00:00 mouth in [place] 00 :00 the Medical morning Branch and 4 tablets in the evening. Do all this for 7 days. fluconazole 2022- No [id number] 150mg Take 1 Univers (DIFLUCAN) 08-30- tablet by ity of 150 mg 00:00: 04:59 [place] tablet 00 :00 now for 1 Medical dose. Branch fluconazole 2022- No [id number] 150mg Take 1 Univers (DIFLUCAN) 08-30- tablet [...] FOR 1 DOSE Branch fluconazole 2021-03- No [id number] 150mg Take 1 Univers (DIFLUCAN) 03-25 11-23 tablet by ity of 150 mg 00:00: 05:59 [place] tablet 00 :00 now for 1 Medical dose. Branch fluconazole 2021-03- No [id number] 150mg Take 1 Univers (DIFLUCAN) 03-25-23 tablet by ity of 150 mg 00:00: 05:59 mouth [place] tablet 00 :00 now for 1 Medical dose. Branch metroNIDAZO 2021-03- No [id number] 500mg Take 1 Univers LE 500 mg 0-04 10-12 tablet by ity of tablet 00:00: 04:59 mouth [place] 00 :00 every 12 Medical (twelve) Branch hours for 7 days. metroNIDAZO 2021-03- No [id number] 500mg Take 1 Univers LE 500 mg 0-04 10-12 tablet by ity of tablet 00:00: 04:59 mouth [place] 00 :00 every 12 Medical (twelve) Branch hours for 7 days. terconazole Yes [id number] 1{appli Insert 1 Univers 0.8 % 9-14 cator} Applicator ity of vaginal 00:00: into [place] cream 00 vagina at Medical bedtime. Branch fluconazole Yes [id number] 150mg Take 1 Univers (DIFLUCAN) 9-14 tablet by ity of 150 mg 00:00: mouth [place] tablet 00 weekly. Medical Branch terconazole Yes [id number] 1{appli Insert 1 Univers 0.8 % 9-14 cator} Applicator ity of vaginal 00:00: into [place] cream 00 vagina at Medical bedtime. Branch fluconazole Yes [id number] 150mg Take 1 Univers (DIFLUCAN) 9-14 tablet by ity of 150 mg 00:00: mouth [place] tablet 00 weekly. Medical Branch terconazole Yes [id number] 1{appli Insert 1 Univers 0.8 % 9-14 cator} Applicator ity of vaginal 00:00: into [place] cream 00 vagina at Medical bedtime. Branch fluconazole Yes [id number] 150mg Take 1 Univers (DIFLUCAN) -14 tablet by ity of 150 mg 00:00: mouth [place] tablet 00 weekly. Medical Branch terconazole 2021- No [id number] 1{appli Insert 1 Univers 0.8 % 11-15 cator} Applicator ity o f vaginal 00:00: 00:00 into [place] cream 00 :00 vagina at Medical bedtime. Branch fluconazole 2021- No [id number] 150mg Take 1 Univers (DIFLUCAN) 11-15 tablet by ity of 150 mg 00:00: 00:00 mouth [place] tablet 00 :00 weekly. Medical Branch terconazole 2021- No [id number] 1{appli Insert 1 Univers 0.8 % 11-15 cator} Applicator ity o f vaginal 00:00: 00:00 into [place] cream 00 :00 vagina at Medical bedtime. Branch fluconazole 2021- No [id number] 150mg Take 1 Univers (DIFLUCAN) 11-15 tablet by ity of 150 mg 00:00: 00:00 mouth [place] tablet 00 :00 weekly. Medical Branch fluconazole 2021- No [id number] 150mg Take 1 Univers (DIFLUCAN) 11-15 tablet by ity of 150 mg 00:00: 00:00 [place] tablet 00 :00 now for 1 Medical dose. Branch fluconazole 2021- No [id number] 150mg Take 1 Univers (DIFLUCAN) 11-15 tablet by ity of 150 mg 00:00: 00:00 [place] tablet 00 :00 now for 1 Medical dose. Branch NUVARING 2019-03 Yes [id number] 1{each} Insert 1 Univers (NUVARING) 1-30 Each into ity of 0.12-0.015 00:00: vagina [place] mg/24 hr 00 once every Medic al vaginal month. Branch insert Insert vaginally and leave in place for 3 consecutiv e weeks, then remove for 1 week. NUVARING 2019-03 Yes [id number] 1{each} Insert 1 Univers (NUVARING) 1-30 Each into ity of 0.12-0.015 00:00: vagina [place] mg/24 hr 00 once every Medic al vaginal month. Branch insert Insert vaginally and leave in place for 3 consecutiv e weeks, then remove for 1 week. NUVARING 2019-03 Yes [id number] 1{each} Insert 1 Univers (NUVARING) 1-30 Each into ity of 0.12-0.015 00:00: vagina [place] mg/24 hr 00 once every Medic al vaginal month. Branch insert Insert vaginally and leave in place for 3 consecutiv e weeks, then remove for 1 week. NUVARING 2019-03- No [id number] 1{each} Insert 1 Univers (NUVARING) 1-30 10-04 Each into ity of 0.12-0.015 00:00: 00:00 vagina [place] mg/24 hr 00 :00 once every Medic al vaginal month. Branch insert Insert vaginally and leave in place for 3 consecutiv e weeks, then remove for 1 week. NUVARING 2019-03- No [id number] 1{each} Insert 1 Univers (NUVARING) 130 10-04 Each into ity of 0.12-0.015 00:00: 00:00 vagina [place] mg/24 hr 00 :00 once every Medic al vaginal month. Branch insert Insert vaginally and leave in place for 3 consecutiv e weeks, then remove for 1 week. NUVARING 2019-03- No [id number] 1{each} Insert 1 Univers (NUVARING) 04-02 10-04 Each into ity of 0.12-0.015 00:00: 00:00 vagina [place] mg/24 hr 00 :00 once every Medic al vaginal month. Branch insert Insert vaginally and leave in place for 3 consecutiv e weeks, then remove for 1 week. Immunizations Ordered Filled Date Status Comments Source Immunization Name Immunization Name [facility] 2011-08-03 Completed University of 00:00:00 [facility] TD 2011-08-03 Completed University of 00:00:00 [facility] TDAP 2011-08-03 Completed University of 00:00:00 [facility] TDAP 2011-08-03 Completed University of 00:00:00 [facility] TDAP 2011-08-03 Completed University of 00:00:00 [facility] TDAP 2011-08-03 Completed University of 00:00:00 [facility] TDAP 2011-08-03 Completed University of 00:00:00 [place] [facility] TDAP 2011-08-03 Completed University of 00:00:00 [facility] TDAP 2011-08-03 Completed University of 00:00:00 [facility] TDAP 2011-08-03 Completed University of 00:00:00 [facility] TDAP 2011-08-03 Completed University of 00:00:00 [facility] TDAP 2011-08-03 Completed University of 00:00:00 [facility] Rubella 2006-08-17 Completed University of 00:00:00 [facility] Rubella 2006-08-17 Completed University of 00:00:00 [facility] Rubella 2006-08-17 Completed University of 00:00:00 [facility] Rubella 2006-08-17 Completed University of 00:00:00 [facility] Rubella 2006-08-17 Completed University of 00:00:00 [facility] Rubella 2006-08-17 Completed University of 00:00:00 [facility] Rubella 2006-08-17 Completed University of 00:00:00 [facility] Rubella 2006-08-17 Completed University of 00:00:00 [facility] Rubella 2006-08-17 Completed University of 00:00:00 [facility] Rubella 2006-08-17 Completed University of 00:00:00 [facility] Rubella 2006-08-17 Completed University of 00:00:00 [facility] Rubella 2006-08-17 Completed University of 00:00:00 [facility] Rubella Unknown Completed [facility] TDAP Unknown Completed [facility] Rubella Unknown Completed [facility] TDAP Unknown Completed [facility] Rubella Unknown Completed [facility] TDAP Unknown Completed [facility] Rubella Unknown Completed [facility] TDAP Unknown Completed [facility] Rubella Unknown Completed [facility] TDAP Unknown Completed [facility] Rubella Unknown Completed [facility] TDAP Unknown Completed [facility] Rubella Unknown Completed [facility] TDAP Unknown Completed [facility] Vital Signs Vital Name Observation Time Observation Value Comments Source Systolic blood 2022 14:43:00 120 mm[Hg] Univer sity of pressure [place] [facility] Diastolic blood 2022 14:43:00 69 mm[Hg] Unive rsity of pressure [place] [facility] Heart rate 2022 14:43:00 74 /min Universi ty of [place] [facility] Body temperature 2022 14:43:00 36.56 Cami Univ ersity of [place] [facility] Respiratory rate 2022 14:43:00 18 [...] 2021-12-05 14:51:00 104.01 kg Universi ty of [facility] BMI 2021-12-05 14:51:00 38.16 kg/m2 Universi ty [facility] Systolic blood 2021-11-15 14:34:00 139 mm[Hg] Univer sity of pressure [facility] Diastolic blood 2021-11-15 14:34:00 86 mm[Hg] Unive rsity of [facility] Heart rate 2021-11-15 14:34:00 93 /min Universi ty [facility] Body temperature 2021-11-15 14:34:[address] [place] [place] Respiratory rate 2021-11-15 14:34:00 18 /min [facility] [place] [place] Body weight 2021-11-15 14:34:00 105.552 kg Universi ty [facility] BMI 2021-11-15 14:34:00 38.72 kg/m2 Universi [facility] Procedures Procedure Date / Time Performed Performing Clinician Sour e CONSENT/REFUSAL FOR 2022 14:16:14 Doctor Unassigned, No Un [facility] DIAGNOSIS AND [facility] TREATMENT ASSIGNMENT OF BENEFITS 2022 14:15:56 Doctor Unassigned, No [facility] Encounters Start End Encounter Admission Attending Care Care Encounter Source Date/Time Date/Time Type Type Clinicians Facility Department ID 2022-09-02 2022-09-02 Telephone Sonal [facility] 1.2.840.114 [id number] Univers 00:00:00 00:00:00 Daisy A 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.1.13.10 i ty of [facility] 4.2.7.2.686 Tam as MATERNAL [id number] Med ical & CHILD [address] [place] [address] 2022-09-01 2022-09-01 Case Sonal [facility] 1.2.840.114 [id number] Univers 00:00:00 00:00:00 Management Daisy A 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.1.13.10 ity of [facility] 4.2.7.2.686 Tam as MATERNAL [id number] Med ical & CHILD [address] [place] [address] 2022-09-01 2022-09-01 Patient Sonal [facility] 1.2.840.114 [id number] Univers 00:00:00 00:00:00 Secure Msg Daisy Patel 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.1.13.10 ity of [facility] 4.2.7.2.686 Tam as MATERNAL [id number] [facility] & [address] 2022 2022 Outpatient R SONAL [facility] [id number] Univers 09:30:00 10:35:[facility] Office Sonal [facility] 1.2.840.114 [id number] Univers 09:30:00 10:35:54 Visit Daisy Patel 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.1.13.10 i ty of [facility] 4.2.7.2.686 Tam as MATERNAL [id number] [facility] & [address] 2022 2022 Orders Doctor TRINIDAD 1.2.840.114 [id number] Univers 00:00:00 00:00:00 Only Unassigned, SIMON 350.1.13.10 ity of [place] [id number] Tam as [phone] [address] 2022-01-23 2022-01-23 Outpatient R SONAL [facility] [id number] Univers 14:30:00 15:08:[address] [facility] [place] [place] 2022-01-23 2022-01-23 Office Provider, TeshaRmchp [facility] 1 .2.840.114 [id number] Univers 14:30:00 15:08:13 Visit Daisy Pruitt 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.1.13.1 0 ity of [facility] 4.2.7.2.686 Tam as MATERNAL [id number] [facility] & CHILD [address] [place] [address] 2022-01-18 2022-01-18 Patient Ruben [facility] 1.2.840.114 [id number] Univers 00:00:00 00:00:00 Secure Msg Roshunda R 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.1.13.10 ity of REGIONAL 4.2.7.2.686 Tam as MATERNAL [phone] Med ical & CHILD [address] [place] [address] 2021-12-12 2021-12-12 Outpatient R ANITA HERRERA [facility] [id number] Univers 00:00:00 00:00:00 ANITA HERRERA [facility] 2021-12-11 2021-12-11 Outpatient R RUBEN [facility] [id number] Univers 13:15:00 13:15:00 REBEKA santiago [facility] 2021-12-05 2021-12-05 [facility] [id number] Univers 09:45:00 10:43:22 ALYSON santiago [facility] 2021-12-05 2021-12-05 [facility] 1 .2.840.114 [id number] Univers 09:45:00 10:43:22 Visit Alyson Demarco 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.1.13. 10 ity of [facility] 4.2.7.2.686 Tam as MATERNAL [id number] Med ical & CHILD [address] [place] [address] 2021-12-05 2021-12-05 Letter Jamal [facility] 1.2.840.114 [id number] Univers 00:00:00 00:00:00 (Out) Anita Steele 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.1.13.10 i ty of REGIONAL 4.2.7.2.686 Tam as MATERNAL [id number] Med ical & CHILD [address] [place] [address] 2021-11-30 2021-11-30 Patient Ruben [facility] 1.2.840.114 [id number] Univers 00:00:00 00:00:00 Secure g Rebeka R 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.1.13.10 ity of [facility] 4.2.7.2.686 Tam as MATERNAL [id number] [facility] ical & CHILD [address] [place] [address] 2021-11-15 2021-11-15 Outpatient R RUBEN [facility] [id number] Univers 09:45:00 09:53:20 ROSCHINANDA ity o f [facility] 2021-11-15 2021-11-15 Office [facility] 1.2.840.114 [id number] Univers 09:45:00 09:53:20 Visit Jerela R 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.1.13.10 ity of REGIONAL 4.2.7.2.686 Tam as MATERNAL [phone] [facility] ical & CHILD [address] [place] [address] 2021-09-29 2021-09-29 Outpatient FADIJOSH_KASSANDRA [facility] 835 [place] 00:00:00 00:00:00 HN 0729 da [facility] 2021-09-26 2021-09-26 Office [facility] 1.2.840.114 [id number] Univers 15:45:00 16:07:59 Visit Rebeka R 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.1.13.10 ity of [facility] 4.2.7.2.686 Tam as MATERNAL [id number] [facility] & CHILD [address] [place] [address] 2021-09-26 2021-09-26 [facility] [id number] Univers 15:45:00 16:07:59 MAGALIENDA ity o [facility] 2021-09-26 2021-09-26 Outpatient R RUBEN [facility] [id number] Univers 15:45:00 15:45:00 MAGALIENDA ity o [facility] 2021-09-25 2021-09-25 Patient [facility] [id number] Univers 00:00:00 00:00:00 Secure Msg 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.1.13.10 ity of REGIONAL 4.2.7.2.686 Tam as MATERNAL [id number] [facility] & CHILD [address] [place] [address] 2021-06-30 2021-06-30 Telephone [facility] [id number] Univers 00:00:00 00:00:00 Roschinanda R 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.1.13.10 ity of REGIONAL 4.2.7.2.686 Tam as MATERNAL [id number] [facility] ical & CHILD [address] [place] [address] 2021-06-27 2021-06-27 Office Miranda [facility] 1.2.840.114 [id number] Univers 12:45:00 13:20:57 [facility] 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.1.13.10 ity of REGIONAL 4.2.7.2.686 Tam as MATERNAL [id number] [facility] & CHILD [address] [place] [address] 2021-06-27 2021-06-27 Outpatient R RUBEN [facility] [id number] Univers 12:45:00 13:20:57 REBEKA salazar pamela [facility] 2021-06-27 2021-06-27 Outpatient R RUBEN [facility] [id number] Univers 12:45:00 12:45:00 REBEKA king o f [facility] 2021-06-26 2021-06-26 Patient [facility] [id number] Univers 00:00:00 00:00:00 Secure Msg 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.1.13.10 ity of REGIONAL 4.2.7.2.686 Tam as MATERNAL [id number] [facility] & CHILD [address] [place] [address] 2021-05-23 2021-05-23 Patient Nilam [facility] [id number] Univers 00:00:00 00:00:00 Secure Msg 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.1.13.10 ity of REGIONAL 4.2.7.2.686 Tam as MATERNAL [id number] [facility] ical & CHILD [address] [place] [address] 2021-05-22 2021-05-22 Office [facility] [id number] Univers 14:15:00 14:50:46 Visit 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.1.13.10 ity of REGIONAL 4.2.7.2.686 Tam as MATERNAL [id number] [facility] ical & CHILD [address] [place] [address] 2021-05-22 2021-05-22 Outpatient R NILAM [facility] [id number] Univers 14:15:00 14:50:46 ALYSON salazar [facility] 2021-05-22 2021-05-22 Outpatient R NILAM [facility] [id number] Univers 14:15:00 14:15:00 ALYSON salazar [facility] 2021-03-10 2021-03-10 Telephone [facility] [id number] Univers 00:00:00 00:00:00 Rebeka R 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.1.13.10 ity of [facility] 4.2.7.2.686 Tam as MATERNAL [id number] [facility] ical & CHILD [address] [place] [address] 2021-02-21 2021-02-21 [facility] [id number] Univers 15:00:00 15:36:35 REBEKA salazar [facility] 2021-02-21 2021-02-21 [facility] 1.2.840.114 [id number] Univers 15:00:00 15:36:35 Visit Yvettecorrina R 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.1.13.10 ity of [facility] 4.2.7.2.686 Tam as MATERNAL [id number] [facility] & [address] 2021-02-21 2021-02-21 [facility] [id number] Univers 15:00:00 15:36:35 REBEKA king o [facility] 2021-02-21 2021-02-21 [facility] [id number] Univers 15:00:00 15:36:35 JERELAmanda carlosy o [facility] 2021-02-21 2021-02-21 Orders Doctor ABDI 1.2.840.114 [id number] Univers 00:00:00 00:00:00 Only Unassigned, SIMON 350.1.13.10 ity of [place] [facility] 4.2.7.2.686 Tam as [id number] [address] 2021-01-19 2021-01-19 Outpatient R JOSE [facility] [id number] Univers 14:30:00 14:30:00 ANITA king [facility] 2021-01-13 2021-01-13 Outpatient Idris GARCIA [facility] [id number] Univers 09:45:00 09:45:00 ANITA king [facility] 2020-12-08 2020-12-08 [facility] [id number] Univers 14:22:47 15:24:04 Visit Alyson Carter 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.1.13.10 ity of [facility] 4.2.7.2.686 Tam as MATERNAL [id number] [facility] & CHILD [address] [place] [address] 2020-12-08 2020-12-08 [facility] [id number] Univers 14:30:00 14:30:00 ALYSON king o f [facility] 2020-12-08 2020-12-08 Orders Doctor TRINIDAD 1.2.840.114 [id number] Univers 00:00:00 00:00:00 Only Unassigned, SIMON 350.1.13.10 ity of [place] [facility] 4.2.7.2.686 Tam as [id number] [address] 2020-12-07 2020-12-07 Telephone [facility] 1.2.840.114 [id number] Univers 00:00:00 00:00:00 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.1.13.10 ity of [facility] 4.2.7.2.686 Tam as MATERNAL [id number] [facility] & CHILD [address] [place] [address] 2020-12-06 2020-12-06 Office [facility] [id number] Univers 14:48:32 15:30:07 Visit 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 ity of [facility] [id number] Tam as MATERNAL [phone] [address] 2020-12-06 2020-12-06 [facility] [id number] Univers 15:00:00 15:00:00 ALYSON king o pamela [facility] 2020-12-06 2020-12-06 Outpatient R NILAM [facility] [id number] Univers 15:00:00 15:00:00 ALYSON king o pamela [facility] 2020-06-30 2020-06-30 [facility] [id number] Univers 14:05:27 15:12:13 Visit Alyson Carter 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 Univers 11:19:39 11:39:39 Only Rachelle [facility] [id number] ity [facility] [id number] Tam as Professio [phone] [facility] [address] 2020-05-24 2020-05-24 Patient Az [facility] [id number] Univers 00:00:00 00:00:00 Outreach Bernardo PRIMARY [id number] i ty of 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 it y of [facility] [id number] Tam as MATERNAL [phone] Med ical & CHILD [address] [place] [address] 2020-02-01 2020-02-01 Office [facility] [id number] Univers 08:47:23 09:37:30 Visit Anita No 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 it y of [facility] [id number] Tam as MATERNAL [phone] [facility] & [address] 2020-02-01 2020-02-01 [facility] [id number] Univers 08:45:00 08:45:00 ANITA king [facility] 2020-02-01 2020-02-01 Orders Doctor [place] [id number] Univers 00:00:00 00:00:00 Only Unassigned, SIMON [id number] ity of [place] [facility] [id number] Tam as [phone] [address] 2019-10-14 2019-10-14 Office [facility] [id number] Univers 13:27:42 14:28:00 Visit Alyson Carter 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 ity of [facility] [id number] Tam as MATERNAL [id number] [address] 2019-10-14 2019-10-14 [facility] [id number] Univers 13:30:00 13:30:00 ALYSON salazar f [facility] 2019-10-08 2019-10-08 [facility]phone [facility] [id number] Univers 00:00:00 00:00:00 Anita No 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 it y of [facility] [id number] Tam as MATERNAL [id number] [address] 2019-10-08 2019-10-08 Patient Doctor [facility] [id number] Univers 00:00:00 00:00:00 Secure Msg 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, 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 ity of [place] [facility] [id number] Tam as MATERNAL [id number] [facility] & CHILD [address] [place] [address] 2019-05-11 2019-05-11 Nurse Visit, TeshaRmchp Nurse [facility] 1.2 .[id number] Univers 10:09:08 10:56:40 Visit Anita Garcia 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
[2023-01-20] MEDS ORDERED: HALOPERIDOL LACT 5 MG/ML INJ ONE (14:08)
[2023-01-20 14:30] LABS: Specific Gravity 1.029 (1.005-1.030); Urine Bacteria <20 /HPF (<20); Urine Bilirubin 2+ (Negative); Urine Blood Negative (Negative); Urine Clarity Extremely Turbid (Clear); Urine Color Dark-Yellow (Yellow); Urine Crystals Unidentified Few /HPF (None Seen); Urine Glucose NEGATIVE (Negative); Urine Mucus 4+ /HPF (None Seen); Urine Protein 1+ (Negative); Urine Urobilinogen 1+ (Normal)
[2023-01-20 14:36] LABS: Absolute Lymphocytes (CBC) 1.8 K/uL (0.7-4.9); Hematocrit 34.8 % (36.0-45.0); Lymphocytes % 28.9 % (15.3-44.8); MCV 90.4 fL (80-100); MPV 8.2 fL (7.6-11.3); Platelets 195 thou/uL (152-406); RBC Red Blood Cell Count 3.85 M/uL (3.86-4.86)
[2023-01-20 14:46] LABS: Albumin 3.1 g/dL (3.4-5.0); Bilirubin Total 1.7 mg/dL (0.2-1.0); Potassium 3.5 mEq/L (3.5-5.1); Protein, Total 7.5 g/dL (6.4-8.2)
--- NOTE | 2023-01-20 15:48 | ER ---
Nurse's Notes [facility] Name: Alicia Osborne Age: 37 yrs Sex: Female : 1985 Arrival Date: 01/20/2023 Time: 11:20 Bed 6 Private MD: Diagnosis: Other cholelithiasis without obstruction Presentation: 01/20 12:05 Chief complaint: Patient states: she is having continued mid upper abdominal pain, ap3 headache, dark urine and beige colored diarrhea for approx 2-3 days now. patient currently rates her pain to be a 7/10 on the pain scale. Coronavirus screen: At this time, the client does not indicate any symptoms associated with coronavirus-19. Ebola Screen: No symptoms or risks identified at this time. Initial Sepsis Screen: Does the patient meet any 2 criteria? No. Patient's initial sepsis screen is negative. Does the patient have a suspected source of infection? Yes: Acute abdominal pain. Risk Assessment: Do you want to hurt yourself or someone else? Patient reports no desire to harm self or others. Onset of symptoms is unknown. 12:05 Method Of Arrival: Ambulatory ap3 12:10 Acuity: PORTIA 3 ap3 Triage Assessment: 12:07 General: Appears in no apparent distress. Behavior is calm, cooperative, appropriate ap3 for age. Pain: Complains of pain in epigastric area Pain currently is 7 out of 10 on a pain scale. Pain began gradually, 2-3 days ago. Neuro: Level of Consciousness is awake, alert, obeys commands, Oriented to person, place, time, situation, Appropriate for age. Cardiovascular: Patient's skin is warm and dry. Respiratory: Airway is patent Respiratory effort is even, unlabored, Respiratory pattern is regular, symmetrical. GI: Reports upper abdominal pain, diarrhea. : Reports dark urine. 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 - Social history:: Smoking status: Reported history of juuling and/or vaping. Screenin:08 [facility] ED Fall Risk Assessment (Adult) History of falling in the last 3 months, ap3 including since admission No falls in past 3 months (0 pts). Abuse screen: Denies threats or abuse. Nutritional screening: No deficits noted. Tuberculosis screening: No symptoms or risk factors identified. Assessment: 13:22 General: Appears in no apparent distress. Behavior is calm, cooperative. Pain: Pain tl4 currently is 5 out of 10 on a pain scale. Neuro: No deficits noted. Cardiovascular: No deficits noted. Respiratory: No deficits noted. GI: Bowel sounds present X 4 quads. Abd is soft X 4 quads Abdomen is tender to palpation in right upper quadrant and left upper quadrant Reports upper abdominal pain, diarrhea, nausea, tolerance of fluids, Patient currently denies tolerance of food, vomiting. : Reports states "my urine is orange". EENT: No deficits noted. Derm: No deficits noted. Vital Signs: 12:05 Pulse 77; Resp 16; Temp 98.4; Pulse Ox 99% ; Weight 104.33 kg; Pain 7/10; ap3 12:05 BP 126 / 74; ap3 13:25 BP 121 / 75 RA Sitting (auto/); Pulse 87 MON; Resp 18 S; Pulse Ox 99% on R/A; Pain 5/10;tl4 12:05 Pain Scale: Adult ap3 13:25 Pain Scale: Adult tl4 Vermilion Coma Score: 13:25 Eye Response: spontaneous(4). Motor Response: obeys commands(6). Verbal Response: tl4 oriented(5). Total: 15. ED Course: 11:21 Patient arrived in ED. rg4 11:29 Laura Sandra FNP-C is PHCP. snw 11:29 Norman Chung MD is Attending Physician. snw 12:07 Triage completed. ap3 12:08 Arm band placed on right wrist. ap3 13:06 Joey Palacios is Primary Nurse. tl4 13:25 Patient has correct armband on for positive identification. Bed in low position. Call tl4 light in reach. Side rails up X 1. Provided Education on: ED process. 13:25 No provider procedures requiring assistance completed. tl4 13:55 Inserted saline lock: 20 gauge in right antecubital area, using aseptic technique. tl4 Blood collected. 14:13 CBC with Diff Sent. tl4 14:13 CMP Sent. tl4 14:13 Lipase Sent. tl4 14:13 Test, Urine Sent. tl4 14:13 Urinalysis w/ reflexes Sent. tl4 Administered Medications: 14:12 Drug: Haloperidol IVP 2.5 mg/50 mL 2.5 mg IVP once; Place patient on a library monitor tl4 Route: IVP; Site: right antecubital; Medication: 12:08 VIS not applicable for this client. ap3 Outcome: 15:47 Discharge ordered by MD. lance 16:30 Patient left the ED. iw Signatures: Laura Sandra, SOFT BOARDER-C SOFT BOARDER-Csnw Stefany Huang RN RN iw Trish Jenkins 4 Adilene Cardoza RN RN ap3 Joey Palacios tl4 Corrections: (The following items were deleted from the chart) 12:10 12:05 Acuity: PORTIA 2 ap3 ap3
--- NOTE | 2023-01-20 15:48 | EDPHYS ---
Physician Documentation [facility] Name: Alicia Osborne Age: 37 yrs Sex: Female : 1985 Arrival Date: 01/20/2023 Time: 11:20 Bed 6 Private MD: ED Physician Norman Chung HPI: 01/20 15:50 This 37 yrs old Black Female presents to ER via Ambulatory with complaints of Abdominal snw Pain, Back Pain. 13:40 The patient presents with abdominal pain in the right upper quadrant. Onset: The snw symptoms/episode began/occurred acutely. The patient has been recently seen by a physician: The patient has been recently seen at the [facility], this week, for similar complaints. pt reports worsening s/s. Hx of ETOH pancreatitis, pt states last ETOH last weekend. 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 - Social history:: Smoking status: Reported history of juuling and/or vaping. ROS: 13:40 Constitutional: Negative for fever, chills, and weight loss, Eyes: Negative for injury, snw pain, redness, and discharge, ENT: Negative for injury, pain, and discharge, Neck: Negative for injury, pain, and swelling, Cardiovascular: Negative for chest pain, palpitations, and edema, Respiratory: Negative for shortness of breath, cough, wheezing, and pleuritic chest pain, Back: Negative for injury and pain, : Negative for injury, bleeding, discharge, and swelling, MS/Extremity: Negative for injury and deformity, Skin: Negative for injury, rash, and discoloration, Neuro: Negative for headache, weakness, numbness, tingling, and seizure, Psych: Negative for depression, anxiety, suicide ideation, homicidal ideation, and hallucinations, 13:40 Abdomen/GI: Positive for abdominal pain, nausea and vomiting, chalk colored stools, Exam: 13:24 Constitutional: This is a well developed, well nourished patient who is awake, alert, snw and in no acute distress. Head/Face: Normocephalic, atraumatic. Eyes: Pupils equal round and reactive to light, extra-ocular motions intact. Lids and lashes normal. Conjunctiva and sclera are non-icteric and not injected. Cornea within normal limits. Periorbital areas with no swelling, redness, or edema. ENT: Nares patent. No nasal discharge, no septal abnormalities noted. Tympanic membranes are normal and external auditory canals are clear. Oropharynx with no redness, swelling, or masses, exudates, or evidence of obstruction, uvula midline. Mucous membranes moist. Neck: Trachea midline, no thyromegaly or masses palpated, and no cervical lymphadenopathy. Supple, full range of motion without nuchal rigidity, or vertebral point tenderness. No Meningismus. Chest/axilla: Normal chest wall appearance and motion. Nontender with no deformity. No lesions are appreciated. Cardiovascular: Regular rate and rhythm with a normal S1 and S2. No gallops, murmurs, or rubs. Normal PMI, no JVD. No pulse deficits. Respiratory: Lungs have equal breath sounds bilaterally, clear to auscultation and percussion. No rales, rhonchi or wheezes noted. No increased work of breathing, no retractions or nasal flaring. Back: No spinal tenderness. No costovertebral tenderness. Full range of motion. Skin: Warm, dry with normal turgor. Normal color with no rashes, no lesions, and no evidence of cellulitis. MS/ Extremity: Pulses equal, no cyanosis. Neurovascular intact. Full, normal range of motion. Neuro: Awake and alert, GCS 15, oriented to person, place, time, and situation. Cranial nerves II-XII grossly intact. Motor strength 5/5 in all extremities. Sensory grossly intact. Cerebellar exam normal. Normal gait. Psych: Awake, alert, with orientation to person, place and time. Behavior, mood, and affect are within normal limits. 13:24 Abdomen/GI: Inspection: obese Bowel sounds: normal, Palpation: moderate abdominal tenderness, in the right upper quadrant, Vital Signs: 12:05 Pulse 77; Resp 16; Temp 98.4; Pulse Ox 99% ; Weight 104.33 kg; Pain 7/10; ap3 12:05 BP 126 / 74; ap3 13:25 BP 121 / 75 RA Sitting (auto/); Pulse 87 MON; Resp 18 S; Pulse Ox 99% on R/A; Pain 5/10;tl4 12:05 Pain Scale: Adult ap3 13:25 Pain Scale: Adult tl4 Jessica Coma Score: 13:25 Eye Response: spontaneous(4). Motor Response: obeys commands(6). Verbal Response: tl4 oriented(5). Total: 15. MDM: 12:12 Patient medically screened. snw 15:23 Differential diagnosis: cholecystitis, Cholelithiasis, non-specific abd pain. Data snw reviewed: vital signs, nurses notes, lab test result(s). I considered the following discharge prescriptions or medication management in the emergency department Medications were administered in the Emergency Department. See MAR. Counseling: I had a detailed discussion with the patient and/or guardian regarding the historical points, exam findings, and any diagnostic results supporting the discharge/admit diagnosis, lab results, the need for outpatient follow up, for definitive care, a general surgeon, to return to the emergency department if symptoms worsen or persist or if there are any questions or concerns that arise at home. Special discussion: Based on the patient's Hx, exam, and Dx evaluation, there is no indication for emergent surgery or inpatient Tx. It is understood by the patient/guardian that if the Sx's persist or worsen they need to return immediately for re-evaluation. Based on the history and exam findings, there is no indication for further emergent testing or inpatient evaluation. I discussed with the patient/guardian the need to see the primary care provider for further evaluation of the symptoms. 15:48 Response to treatment: the patient's symptoms have markedly improved after treatment. snw 01/20 13:26 Order name: CBC with Diff; Complete Time: 14:46 w 01/20 13:26 Order name: CMP; Complete Time: 14:51 [facility] 01/20 16:16 Interpretation: Abnormal: Elevated LFTs however lower than pt's last visit 2 days ago. snw 01/20 13:26 Order name: Lipase; Complete Time: 14:51 snw 01/20 13:26 Order name: Test, Urine; Complete Time: 14:46 snw 01/20 13:26 Order name: Urinalysis w/ reflexes; Complete Time: 14:46 snw 01/20 13:26 Order name: IV Saline Lock; Complete Time: 14:13 snw 01/20 13:26 Order name: Labs collected and sent; Complete Time: 14:13 snw Administered Medications: 14:12 Drug: Haloperidol IVP 2.5 mg/50 mL 2.5 mg IVP once; Place patient on a cardiac specialist tl4 Route: IVP; Site: right antecubital; Disposition Summary: 01/20/23 15:47 Discharge Ordered Notes: Location: Home snw Condition: Stable snw Diagnosis - Other cholelithiasis without obstruction snw Followup: snw - With: Emergency Department - When: As needed - Reason: Worsening of condition Followup: snw - With: Private Physician - When: 2 - 3 days - Reason: Recheck today's complaints, Continuance of care, Re-evaluation by your physician Discharge Instructions: - Discharge Summary Sheet snw - Cholelithiasis snw - Rehydration, Adult snw - Gallbladder Eating Plan snw Forms: - Work release form snw - Medication Reconciliation Form snw - Thank You Letter snw - Antibiotic Education snw - Prescription Opioid Use snw - Patient Portal Instructions snw - Leadership Thank You Letter snw Prescriptions: - promethazine 25 mg Oral Tablet - take 1 tablet ORAL route every 6 hours As needed; 20 tablet; Refills: 0, snw Product Selection Permitted - dicyclomine 20 mg Oral tablet - take 1 tablet ORAL route 4 times per day; 24 tablet; Refills: 0, Product snw Selection Permitted Signatures: Dispatcher [employer] Laura Cosby FNP-C CORRECTIONAL SUPPLY SUPERVISOR-Csnw Adilene Cardoza RN RN ap3 Joey Palacios tl4
[2023-01-20 16:55] VITALS: TEMP 98.4; O2SAT 99
[2023-01-20 16:56] VITALS: BP 121/75
== END 2023-01-20 16:30 | disposition home or self-care (01) ==
LOC: ER 11:20
DX: K80.80 Other cholelithiasis without obstruction (principal); R10.13 Epigastric pain; R51.9 Headache, unspecified
CPT/HCPCS: 85025; 81001; 36415; 81025; 83690; 80053; 96374; 99284; J1630